=== PATIENT | female | born 1965 | race Caucasian/White ===

== ENCOUNTER → 2017-09-22 09:20 | Outpatient (CLI) | payer OTHER, SELFPAY ==
[2017-09-22 10:48] LABS: ALB/GLOB Ratio 1.2 RATIO (0.9-2.4); AST(SGOT) 16 U/L (15-37); Alanine Aminotransfer ALT/SGPT 32 U/L (13-56); Albumin, Serum 3.7 g/dL (3.2-5.0); Alkaline Phosphatase 85 U/L (45-117); Anion Gap 9 (5-15); BUN 10 mg/dL (7-18); BUN/Creat Ratio 11.3 RATIO (10-20); Calcium,Total 8.9 mg/dL (8.5-10.1); Chloride 101 mmol/L (98-107); Cholesterol 137 mg/dL (200); Creatinine, Serum 0.89 mg/dL (0.55-1.02); EST Glomerular Filtration Rate 71 mL/min (>60); Est Glom Filt Rate - Afr Amer 86 mL/min (>60); Globulin 3.2 g/dL (2.2-4.2); Glucose 222 mg/dL (74-106); High Density Lipoprotein 40 mg/dL; Potassium 4.1 mmol/L (3.5-5.1); Protein, Total 6.9 g/dL (6.4-8.2); Sodium Level 137 mmol/L (136-145); Thyroid Stim Hormone (TSH) 0.68 uIU/mL (0.358-3.74); Triglycerides 104 mg/dL; Very Low Density Lipoprotein 21 mg/dL (5-40)
== END ==
PROVIDERS: Family Provider Family Medicine; PCP Family Medicine; Visit Provider Family Medicine
DX: E11.9 Type 2 diabetes mellitus without complications (principal)
CPT/HCPCS: 36415; 80053; 80061; 84443

== ENCOUNTER → 2017-10-13 15:14 | Outpatient (CLI) | payer OTHER, SELFPAY ==
[2017-10-17 11:31] LABS: HPV APTIMA, High Risk Negative (Negative)
== END ==
PROVIDERS: Visit Provider Nurse Practitioner Women's Health
DX: Z12.4 Encounter for screening for malignant neoplasm of cervix (principal)
CPT/HCPCS: 88175; G0145

== ENCOUNTER → 2017-11-01 12:44 | Outpatient (CLI) | payer OTHER, SELFPAY | PROVIDERS: Family Provider Family Medicine; PCP Family Medicine; Visit Provider Nurse Practitioner Women's Health | DX: Z12.31 Encounter for screening mammogram for malignant neoplasm of breast (principal) | CPT/HCPCS: 77063; 77067 ==

== ENCOUNTER → 2017-12-30 14:09 | Outpatient (CLI) | payer OTHER, SELFPAY ==
[2017-12-30 15:03] LABS: Vitamin D,25 Hydroxy 28.6 ng/mL (29.95-100.01)
[2017-12-30 15:06] LABS: Hemoglobin A1c 7.8 % (4.2-6.3)
== END ==
PROVIDERS: Family Provider Family Medicine; PCP Family Medicine; Referring Provider Nurse Practitioner; Visit Provider Nurse Practitioner
DX: E11.9 Type 2 diabetes mellitus without complications (principal); E55.9 Vitamin D deficiency, unspecified
CPT/HCPCS: 36415; 82306; 83036

== ENCOUNTER → 2018-03-01 09:02 | Outpatient (CLI) | payer OTHER, SELFPAY ==
[2017-12-29 11:39] VITALS: BMI 39.2
--- NOTE | 2018-03-01 09:27 | EKG12_ITS ---
Test Reason : CP, UNSPECIFIED Blood Pressure : / mmHG Vent. Rate : 080 BPM Atrial Rate : 080 BPM P-R Int : 112 ms QRS Dur : 078 ms QT Int : 360 ms P-R-T Axes : 031 010 032 degrees QTc Int : 415 ms Normal sinus rhythm Low voltage QRS Cannot rule out Inferior infarct , age undetermined Abnormal ECG Confirmed by BRUNILDA GENAO, ALPHONSO ([id number]), marketing editor DILSHAD AGUILLON ([id number] on 03/03/2018 9:55:08 AM Referred By: Trent Siddiqui Confirmed By:ALPHONSO WORLEY MD
--- OUTSIDE RECORDS SUMMARY | 2018-04-17 05:03 | XMS RPT_ITS ---
:1965 Author Organization OHIP Support Name Relationship Address Phone DE LUNA Unavailable [address] + [place] [address] PINEDA TSE Unavailable [address] + [place] [address] DE LUNA Unavailable [address] + [place] [address] PINEDA TSE Unavailable [address] + [place] [address] DE LUNA Unavailable [address] + [place] [address] PINEDA TSE Unavailable [address] + [place] [address] DE LUNA Unavailable [address] + [place] [address] PINEDA TSE Unavailable [address] + [place] [address] DE LUNA Unavailable [address] + [place] [address] PINEDA TSE Unavailable [address] + [place] [address] DE LUNA Unavailable [address] + [place] [address] PINEDA TSE Unavailable [address] + [place] [address] DE LUNA Unavailable [address] + [place] [address] PINEDA TSE Unavailable [address] + [place] [address] DE LUNA Unavailable [address] + [place] [address] PINEDA TSE Unavailable [address] + [place] [address] DE LUNA Unavailable [address] + [place] [address] PINEDA TSE Unavailable [address] + [place] [address] DE LUNA Unavailable [address] + [place] [address] PINEDA TSE Unavailable [address] + [place] [address] DE LUNA Unavailable [address] + [place] [address] PINEDA TSE Unavailable [address] + [place] [address] DE LUNA Unavailable [address] + [place] [address] PINEDA TSE Unavailable [address] + [place] [address] DE LUNA Unavailable [address] + [place] [address] PINEDA TSE Unavailable [address] + [place] [address] DE LUNA Unavailable [address] + [place] [address] PINEDA TSE Unavailable [address] + [place] [address] DE LUNA Unavailable [address] + [place] [address] PINEDA TSE Unavailable [address] + [place] [address] DE LUNA Unavailable [address] + [place] [address] ASHLYPINEDA Unavailable [address] + [place] [address] DE LUNA Unavailable [address] + [place] [address] ASHLYPINEDA Unavailable [address] + [place] [address] Care Team Providers Name Role Phone Trent Siddiqui Attending Unavailable Trent Siddiqui Referring Unavailable Oli Weiner Primary Care Unavailable Syed Tamayo Attending Unavailable Oli Weiner Referring Unavailable Sulaiman London Attending Unavailable Trent Siddiqui Referring Unavailable Oli Weiner Primary Care Unavailable Trent Siddiqui Consulting Unavailable Syed Tamayo Attending Unavailable Syed Tamayo Referring Unavailable Ranney, Christopher Primary Care Unavailable Shayan Mckeon Attending Unavailable Ranney, Christopher Referring Unavailable MikeShayan hancock Attending Unavailable Mike Shayan Referring Unavailable Ranney, Christopher Primary Care Unavailable Ranney, Christopher Attending Unavailable Ranney, Christopher Primary Care Unavailable Kirsten, Nishi Attending Unavailable Ranney, Christopher Referring Unavailable Ranney, Christopher Primary Care Unavailable Elmendorf, Nishi Attending Unavailable Ranney, Christopher Primary Care Unavailable Elmendorf, Nishi Referring Unavailable Elmendorf, Nishi Attending Unavailable Ranney, Christopher Primary Care Unavailable Syed Tamayo Attending Unavailable Syed Tamayo Referring Unavailable Ranney, Christopher Primary Care Unavailable Syed Tamayo Attending Unavailable Syed Tamayo Referring Unavailable Syed Tamayo Attending Unavailable Syed Tamayo Referring Unavailable Ranney, Christopher Primary Care Unavailable Syed Tamayo Consulting Unavailable Susy Hudson LEAD SPRINKLER-C Attending Unavailable Ranney, Christopher Referring Unavailable Shook, Susy Pena LEAD SPRINKLER-C Attending Unavailable Ranney, Christopher Referring Unavailable [facility] Unavailable ShoSusy chowdary LEAD SPRINKLER-C Attending Unavailable Ranney, Christopher Referring Unavailable Shook, Susy Pena LEAD SPRINKLER-C Attending Unavailable Shook, Susy J LEAD SPRINKLER-C Referring Unavailable Ranney, [facility] Unavailable PROBLEMS PROBLEMS DATE TYPE CONDITION / CODE ATTENDING STATUS SOURCE 04/06/2018 Unknown E11.9 - Type 2 Susy Hudson Active [place] diabetes mellitus LEAD SPRINKLER-C Community without Hospital complications / Repository E11.9(ICD-10) 04/03/2018 Unknown R07.89 - Other Syed Tamayo Active [place] chest pain / Community R07.89(ICD-10) Hospital Repository 04/03/2018 Unknown I10 - Essential Syed Tamayo Active [place] (primary) Community hypertension / Hospital I10(ICD-10) Repository 03/30/2018 Unknown R07.9 - Chest pain, Syed Tamayo Active [place] unspecified / Community R07.9(ICD-10) Hospital Repository 03/07/2018 Unknown G47.33 - Shayan Mckeon Active [place] Obstructive sleep Community apnea (adult) Hospital (pediatric) / Repository G47.33(ICD-10) 12/29/2017 Unknown E55.9 - Vitamin D Susy Hudson Active [place] deficiency, [employer] SPRINKLER-C Community unspecified / Hospital E55.9(ICD-10) Repository 11/01/2017 Unknown Z12.4 - Encounter Nishi Curtis Active [place] for screening for Community malignant neoplasm Hospital of cervix / Repository Z12.4(ICD-10) PROCEDURES PROCEDURES No Procedure Records FoundRESULTS RESULTS ENDOCRINOLOGY VISIT Observed: 04/09/2018 Status: F Source: [place] REPORT 8:19 PM [facility] REPOSITORY [facility] [address] [place] [address] OFFICE VISIT Date of Service: 04/06/18 MR#: [id number] Acct: [id number] Name: LORENA TSE Rep #: [id number] : 1965 Provider: Susy Hudson NP Age/Sex: 53/F Location: [facility] [place] Status: Signed HPI History of present illness Lorena Tse is a 53 year old female who presents for consult of diabetes type 2. Diagnosed approx 2007. Continues on metformin. No side effects. Reports last A1c 7.8 At time of visit: -Pt denies symptoms of hypertensive emergency (CP,SOB,LIN, or blurred vision) and hypotension(dizziness or lightheadedness) -Pt denies symptoms of hypoglycemia ( sweaty, confusion, anxiety, tremor, hunger, palpitations) and hyperglycemia ( polydipsia, polyuria) -Pt denies potential medication adverse effect. Hypoglycemia Aware of hypoglycemia: When awake Able to self treat low BG: Yes Frequent low Blood sugar: No Has supply of glucagon: no SMBG Checks 2-3 times daily BG 150-180 range with occ higher. Diet 3 meals Calorie counting minimal snacks Exercise Walking each day Exam Const General: cooperative, healthy appearing, no acute distress, well developed Orientation: alert, oriented to person, oriented to place HENMT Head: normal to inspection Neck Neck: normal visual inspection Thyroid: thyroid normal Resp Effort AND Inspection: normal respiratory effort Auscultation: clear to auscultation bilaterally Cardio Rate: regular rate Rhythm: regular rhythm GI Palpation: soft, nontender, no masses Neuro General: alert, oriented x3 Psych Affect: normal affect Cardiopulmonary symptoms: Denies chest pain at rest or dizziness GI symptoms: Denies diarrhea, vomiting, nausea/dyspepsia or increased hunger Other symptoms: Reports blurry vision (being treated eye doctor); denies change in vision Intake Vital Signs04/06/18 Height 5 ft 2 in 04/06/18 Weight: 219 lb 04/06/18 Body Mass Index (BMI) 40.0 04/06/18 Blood Pressure 102/70 04/06/18 Blood Pressure Location Lt brachial Intake Visit Reasons: 3 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 Books Required: No Accompanied by: Self Is patient in pain?: No Allergies No Known Allergies Allergy (Verified 04/06/18 11:35) Medications atorvastatin 40 mg tablet 40 mg PO QDAY 10/12/17 [History Confirmed 04/06/18] cholecalciferol (vitamin D3) 1,000 unit capsule 1,000 unit PO QDAY 10/12/17 [History Confirmed 04/06/18] escitalopram 10 mg tablet 10 mg PO QDAY 10/12/17 [History Confirmed 04/06/18] lisinopril 10 mg-hydrochlorothiazide 12.5 mg tablet 1 tab PO QDAY 10/12/17 [History Confirmed 04/06/18] ropinirole 0.5 mg tablet 0.5 mg PO QHS 10/12/17 [History Confirmed 04/06/18] spironolactone 100 mg tablet 100 mg PO QDAY 10/12/17 [History Confirmed 04/06/18] aspirin 81 mg tablet,delayed release 81 mg PO DAILY 03/03/18 [History Confirmed 04/06/18] metformin 500 mg tablet See Rx Instructions PO .COMPLEX tab 03/03/18 [History Confirmed 04/06/18] sitagliptin 25 mg tablet 25 mg PO DAILY #30 tab 04/06/18 [Rx Confirmed 04/06/18] Is last menstrual period known: No Post menopausal: No Patient : No PFSH Medical History Chest pressure (Acute) PCOS (polycystic ovarian syndrome) (Chronic) Hypertension (Chronic) Diabetes (Chronic) Surgical History H/O bilateral oophorectomy (Chronic) H/O: hysterectomy (Chronic) History of breast biopsy (Chronic) History of carpal tunnel surgery (Chronic) History of laparoscopy (Chronic) History of tonsillectomy (Chronic) Family History Father Cancer Mother Pulmonary embolism Grandmother Diabetes Brother Kidney disease Grandfather No problems noted. Social History Smoking Status: Never smoker alcohol intake: never substance use type: does not use caffeine: Yes what type of physical activity do you participate in: walking seatbelt use: always do you feel safe at home: Yes additional social history: Nii- Patient works at [employer] ROS Const Constitutional: No chills, fever(s) or night sweats Eyes Eyes: Positive for blurry vision (being treated eye doctor); no change in vision ENT ENT: No nosebleed/epistaxis or ear pain Resp Respiratory: No cough or shortness of breath Cardio Cardiology: No chest pain at rest or generalized swelling Gastro GI: No diarrhea, vomiting or nausea/dyspepsia Genitourinary-Female: No difficulty urinating or urinary urgency Musc Musculoskeletal: No back pain or muscle cramps Skin Skin: No lesions or rash Neuro Neurology: No fainting or dizziness Endo Endocrine: Positive for increased thirst/drinking; no increased hunger Jayson/Lymp Hematologic/Lymphatic: No easy bleeding or easy bruising Assessment AND Plan Problems 1. Controlled type 2 diabetes mellitus without complication, without long-term current use of insulin E11.9 Plan Will add januvia to current regimen in effort to improve overall glycemicx control. Patient given coupon. On barbie inhibitor. Bp in range. Vit D low but patient forgets to take suppplement. Enc to do so. Patient Instructions Januvia once daily Continue to monitor diet, exercise and weight loss. Continue to monitor BG Medications New: Plan Detail Additional Comments 1. Please schedule follow up in 3 months. 2. Lab work one week before appointment. 3. Discussed importance of regular exercise and recommend starting or continuing a regular exercise program for good health. 4. The patient was encouraged to lose weight for good health 5. The importance of monitoring blood sugar regularly was reviewed. 6. The importance of monitoring the HBA1c level regularly was reviewed. 7. The importance of prper foot care and regularly checking feet to prevent sores and loss of limbs was reviewed. 8. The importance of keeping BP at or below 130/80 to prevent stroke, heart attacks, kidney failure, blindness was reviewed. Spent approximately 30 minutes with patient with over 50% of time spent in discussion and counseling regarding medication adjustment, symptoms and treatment of hypoglycemia, diet adherence, and checking BG before driving. 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: without squirt machine operator use Diabetes mellitus complication status: without complication 04/09/182018 <Electronically signed by Susy SOLO> Date Susy SOLO Cosigner Signature: Date (if applicable) CC: STRESS TEST ECHO W/ Observed: 04/03/2018 Status: F Source: [place] CONTRAST 9:56 AM [facility] REPOSITORY [facility] Cardiovascular Services [address] [place] [place] [id number] Stress Test Echo W/Contrast MR#: [id number] Acct: [id number] Name: LORENA TSE Rep #: [id number] : 1965 53 From: Syed Tamayo MD Primary Care: Oli Weiner MD Status: REG [facility] Ordering Dr: Syed Tamayo MD Sex: F C Reason For Study: CHEST PAIN Stress Results Protocol: Shayan Protocol Maximum Predicted HR: 168 bpm Target HR: 143 bpm % Maximum Predicted HR: 98 % DurationHeart Rate Stage (mm:ss) (bpm) BP Comment BASELINE 76 122/780.2 DEFINITY STAGE 1 3:00 134 174/78 STAGE 2 3:00 157 186/70 STAGE 3 0:30 164 / 0.2 CC DEFINITY RECOVERY 122 150/72 Stress Duration: 6:30 mm:ss Maximum Stress HR: 164 bpm Baseline Echocardiogram Findings The estimated ejection fraction is 65 %. Stress Echo Wall motion Data Resting WM Intermediate WM Stress WM Resting Wall Motion Wall Motion Stress No regional wall motion No regional wall motion abnormalities noted. abnormalities noted. EKG Data Normal intervals are noted. The patient exercised according to the regular Shayan protocol for a total duration of 6:30. The maximum heart rate attained was 169 beats per minute. This was 100% of maximum predicted heart rate. The patient exercised into stage 3 of the Shayan protocol. During stress, there were no ST or T wave changes noted to suggest ischemia. No clinical angina was noted. No arrhythmias noted. Interpretation Summary The estimated ejection fraction is 65 %. Normal adequate treadmill echocardiogram. Negative for ischemia by EKG and echocardiographic criteria. No anginal symptoms noted. No arrhythmias noted. Appropriate blood pressure response to exercise. Average exercise capacity for age. Decreased sensitivity due to poor echo windows requiring Definity agent. Final LVEF is 75%. Test terminated due to the attainment of target heart rate and leg discomfort. No complications. The study was technically difficult. Contrast injection was performed. 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 [place] [address] OFFICE VISIT Date of Service: 10/12/17 MR#: [id number] Acct: [id number] Name: LORENA TSE Rep #: [id number] : 1965 Provider: JS Curtis Age/Sex: 52/F Location: [facility] [place] Status: Signed with Addenda ADDENDUM by JS Curtis on 03/28/18 at 1110 Addendum entered and electronically signed by EDIL Park 03/28/18 11:10: Rectal exam was deferred. No masses palpated Assessment AND Plan Problems 1. Encounter for gynecological examination with abnormal finding Z01.411 2. Pap smear for cervical cancer screening Z12.4 3. Body mass index (BMI) of 40.1 to 44.9 in adult Z68.41 4. Dyspareunia Plan - EDIL Park Completed breast and pelvic exam Reviewed diet and exercise Pap thin prep pap with HPV Mammogram ordered Colonoscopy Will consult with Dr. Ngo for Rx of Adipex. Reviewed with patient use, benefits, risks and side effects. Keep diet diary and will need follow up with Dr. Ngo in 4 weeks Discussed use of coconut oil for dryness; consider estrogen cream if not helpful RTO 1 year, prn with problems Nishi Curtis MATTRESS WEAVER Orders Orders: 03/28/18 1110 <Electronically signed by Nishi SOLO> Date Nishi Curtis cc: * Signed Intake Vital Signs10/12/17 Height 5 ft 2 in 10/12/17 Weight: 224 lb 4 oz 10/12/17 Body Mass Index (BMI) 41.0 10/12/17 Blood Pressure 123/77 Intake Visit Reasons: ANNUAL Chief Complaint: NEW annual Salesperson Books Required: No Is patient in pain?: No Allergies No Known Allergies Allergy (Unverified 10/12/17 08:12) Medications atorvastatin 40 mg tablet 40 mg PO QDAY 10/12/17 [History Confirmed 10/12/17] cholecalciferol (vitamin D3) 1,000 unit capsule 1,000 unit PO QDAY 10/12/17 [History Confirmed 10/12/17] cinnamon bark 500 mg capsule mg PO 10/12/17 [History Confirmed 10/12/17] escitalopram 10 mg tablet 10 mg PO QDAY 10/12/17 [History Confirmed 10/12/17] lisinopril 10 mg-hydrochlorothiazide 12.5 mg tablet 1 tab PO QDAY 10/12/17 [History Confirmed 10/12/17] metformin 500 mg tablet 500 mg PO BID 10/12/17 [History Confirmed 10/12/17] ropinirole 0.5 mg tablet 0.5 mg PO QHS 10/12/17 [History Confirmed 10/12/17] spironolactone 100 mg tablet 100 mg PO QDAY 10/12/17 [History Confirmed 10/12/17] Is last menstrual period known: No Post menopausal: Yes Patient : No : No PFSH Medical History Diabetes (Acute) PCOS (polycystic ovarian syndrome) (Acute) Hypertension (Chronic) Surgical History H/O bilateral oophorectomy (Acute) H/O: hysterectomy (Acute) History of breast biopsy (Acute) History of carpal tunnel surgery (Acute) History of laparoscopy (Acute) History of tonsillectomy (Acute) Family History Father Cancer wild Mother Pulmonary embolism Grandmother Diabetes Social History Smoking Status: Never smoker alcohol intake: never substance use type: does not use caffeine: Yes what type of physical activity do you participate in: walking seatbelt use: always do you feel safe at home: Yes additional social history: Nii- Patient works at [employer] Pregancy History 3 Elective abortions Hx Para 2 Spontaneous abortions Past Pregnancies Del. DatName GA/WeeksOutcome Route [place] [facility] LocaProviderFOB e ht en ia tn Unknown 1987 Temi ndon Unknown 1996 Adr ianna HPI ANNUAL: Details: LORENA TSE is a 52 year old who presents for annual exam. Struggling with weight loss. Wants to try Adipex. Last PAP: 2017 abnormal History of abnormal PAP: no Last mammogram: 2017 History of abnormal mammogram: negative biopsy Female Reproductive History Questions: Metorrhagia: No, Sexually active: Yes, Dyspareunia: Yes, PCB: No Menopausal Treatment: No HRT ROS Const Constitutional: Denies fatigue, weight gain or weight loss Cardio Card: Denies chest pain Resp Resp: Denies cough or shortness of breath with activity GI GI: Denies abdominal pain, constipation, change in stools, vomiting or bloating : Reports as per HPI; denies urinary frequency, pelvic pain, urinary urgency, vaginal discharge, vaginal itching, urinary incontinence or difficulty urinating Exam Const General: cooperative, healthy appearing, no acute distress, well developed Orientation: alert, oriented to person, oriented to place [facility] Head: normal to inspection Neck Neck: normal visual inspection Thyroid: thyroid normal Lymphatic: no lymphadenopathy noted Chest Breast inspection: normal inspection of the breasts, normal inspection of the axillae Breast palpation: normal palpation of the breasts, normal palpation of the axillae, no axillary lymphadenopathy Resp Effort AND Inspection: normal respiratory effort Auscultation: clear to auscultation bilaterally Cardio Rate: regular rate Rhythm: regular rhythm GI Palpation: soft, nontender, no masses Rectal Exam: mass, deferred External Female Exam: normal external appearance, normal appearance of the urethra Urethra: normal appearance of the urethra, normal palpation Speculum Exam - Vagina: normal appearance of the vagina, normal vaginal discharge Speculum Exam - Cervix: normal appearance of the cervix (pap collected) Bimanual Exam- Vagina AND Uterus: normal bimanual exam, uterus absent Bimanual Exam- Adnexa, other: normal adnexae, no adnexal masses, adnexae non-tender, pelvic support normal Pelvic Support: normal Neuro General: alert, oriented x3 Psych Affect: normal affect Assessment AND Plan Problems 1. Encounter for gynecological examination with abnormal finding Z01.411 2. Pap smear for cervical cancer screening Z12.4 3. Body mass index (BMI) of 40.1 to 44.9 in adult Z68.41 4. Dyspareunia Plan Completed breast and pelvic exam Reviewed diet and exercise Pap thin prep pap with HPV Mammogram ordered Colonoscopy Will consult with Dr. Ngo for Rx of Adipex. Reviewed with patient use, benefits, risks and side effects. Keep diet diary and will need follow up with Dr. Ngo in 4 weeks Discussed use of coconut oil for dryness; consider estrogen cream if not helpful RTO 1 year, prn with problems Nishi Curtis CNP Orders Orders: Coding Level of Care Code Off vis,new,prev 40-64yrs Diagnoses Encounter for gynecological examination with abnormal finding Z01.411 Gynecological examination findings: abnormal findings PRESENT Pap smear for cervical cancer screening Z12.4 Body mass index (BMI) of 40.1 to 44.9 in adult Z68.41 Dyspareunia 10/12/17 1258 <Electronically signed by Nishi SOLO> Date Nishi Curtis NP-C Cosigner Signature: Date (if applicable) CC: ECHO, COMPLETE W/ Observed: 03/10/2018 Status: F Source: [place] CONTRAST 9:58 AM [facility] REPOSITORY [facility] Cardiovascular Services [address] [place] [place] [id number] Echo Complete W/ Contrast 03/09/18 1559 MR#: [id number] Acct: [id number] Name: LORENA TSE Rep #: [id number] : 1965 53 From: Syed Tamayo MD Attending Dr: Syed Tamayo MD Status: REG CLI Ordering Dr: Syed Tamayo MD Date: 03/09/18 Location: [facility] Sex: F C Admitted: Reason For Study: CHEST PAIN Procedure This was a 2D Doppler, Color Flow transthoracic echocardiogram. Contrast injection was performed. Exam performed in department. Left Ventricle Normal size and thickness. The estimated ejection fraction is 75 %. Stage 1 diastolic dysfunction. No regional wall motion abnormalities noted. Right Ventricle Normal size and thickness. Normal systolic function. Atria Normal left atrium. Normal right atrium. Normal atrial septum. Mitral Valve The mitral valve is structurally normal. No prolapse or stenosis seen. Tricuspid Valve Normal tricuspid valve. Trivial tricuspid valve insufficiency. Right ventricular systolic pressure estimated to be 26 mmHg. Aortic Valve Normal aortic valve. Trisinus/trileaflet aortic valve. Pulmonic Valve Normal pulmonic valve. Great Vessels Normal aortic root. Normal arch. Normal inferior vena cava. Inferior vena cava collapse with sniff. Pericardium/Pleural No pericardial effusion. Medication 22 gauge I.V. with prn adaptor inserted into right arm. Diluted definity 5ml given slow IV push to enhance endocardial definition. MMode/2D Measurements AND Calculations LVIDd: 4.1 cm IVSd: 1.1 cm Ao root diam: 2.8 cm LVIDs: 2.7 cm LVPWd: 0.99 cm RVDd: 3.6 cm FS: 34.3 % LAV(MOD-bp): 28.2 ml EDV(MOD-sp4): 65.6 ml EDV(MOD-sp2): 59.4 ml LAV(MOD-bp) Indexed: 14.2 ml/m2 ESV(MOD-sp4): 21.5 ml EF(MOD-sp2): 71.1 % LAV(MOD-sp2): 29.8 ml EF(MOD-sp4): 67.2 % LAV(MOD-sp4): 26.5 ml SV(MOD-sp4): 44.0 ml SV(MOD-sp2): 42.3 ml LA A4 area: 12.6 cm2 LA dimension(2D): 4.0 cm RA A4 area: 9.0 cm2 Time Measurements MV dec time: 0.24 sec Doppler Measurements AND Calculations MV E max david: 88.0 cm/sec Lat Peak E' David: 10.8 cm/sec Med Peak E' David: 6.6 cm/sec MV A max david: 93.7 cm/sec E/E' lat: 8.2 E/E' med: 13.4 MV E/A: 0.94 Ao V2 max: 174.4 cm/sec LV V1 max: 157.5 cm/sec TR max david: 228.1 cm/sec Ao max P.2 mmHg LV V1 max P.9 mmHg TR max P.8 mmHg Interpretation Summary The estimated ejection fraction is 75 %. Stage 1 diastolic dysfunction. Trivial tricuspid valve insufficiency. Right ventricular systolic pressure estimated to be 26 mmHg. The study was technically difficult. Contrast injection was performed. There is no comparison study available. Ordering Physician: Syed Tamayo Referring Physician: OLI WEINER Performed By: Guerita Evans, DUANE, RVT 03/10/1858 Date Syed Tamayo MD CC: Oli Weiner MD; Syed Tamayo MD Date Dictated: 03/09/18 1559 Date Transcribed: 03/10/1858 Capacity Planning Analyst: Signed PULMONARY VISIT REPORT Observed: 03/07/2018 Status: F Source: [place] 12:06 PM [facility] REPOSITORY [facility] [place] [address] [place] [address] OFFICE VISIT Date of Service: 03/07/18 MR#: [id number] Acct: [id number] Name: LORENA TSE Rep #: [id number] : 1965 Provider: Shayan Mckeon MD Age/Sex: 53/F Location: [facility] Status: Signed Assessment AND Plan 1. Obstructive Sleep Apnea-Hypopnea Syndrome G47.33 Plan Patient had a previous sleep study 10 years ago showing an AHI of 65 and weight is grossly unchanged compared to previous. Studies would indicate that a dental appliance is very unlikely to normalize patient's AHI. After review of the risks, benefits alternatives, patient is agreeable to having a repeat titration study. Did discuss with the patient about the role of weight loss and the overall disease plan of care, but would like to normalize AHI prior to initiation of dietary modification and increased activity. Patient voiced understanding. Titration study. Weight loss in the future. Orders Orders: Plan Detail Follow Up 3 Months (CSM) HPI Obstructive Sleep Apnea Patient is a 53-year-old female, currently under the care of Dr. Morley, who presents for evaluation secondary to obstructive sleep apnea. Patient reports that she was unable to tolerate nasal CPAP by nasal pillows when diagnosed approximately 10 years ago. Patient states that she is a belly sleeper and had difficulties with knocking the interface off. Patient has since attempted a dental appliance, but states that she still is significantly exhausted during the day and it is starting to cause jaw pain. Documentation reviewed 23 pages of documentation were reviewed from patient's primary care physician. Patient reportedly has had issues with obesity in the past and is attempting weight watchers. Patient does have a history of diabetes, hypertension and hyperlipidemia. Patient has been treated for RAAD with a dental piece and has some complaints of restless leg syndrome for which Requip has been successful subjectively. Testing personally reviewed with the patient PSG (03/06/2012): Overall AHI of 65.6 with desaturations as low as 88% controlled with CPAP 8 cm of water Patient is having a sleep study for: snoring, witnessed apneas, daytime sleepiness, leg movement, obstructive sleep Sleeping on side has: no effect How does the patient feel upon waking: exhausted Patient has morning headaches: Yes Patient naps during the day: Yes Patient falls asleep inappropriately during the day: Yes Patient has drowsiness while driving: Yes Patient falls asleep while driving: No Patient has difficulty concentrating during activity such as watching TV or reading: Yes There is a family history of obstructive sleep apnea: Yes Narcoleptic symptoms: Denies hynogogic hallucinations, sleep paralysis or cataplexy How many events per hour: 65 CPAP/BIPAP use: prescribed not used Intake Vital Signs03/07/18 Height 5 ft 2 in 03/07/18 Weight: 99.337 kg 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 Accompanied by: Self Allergies No Known Allergies Allergy (Verified 03/07/18 11:29) Medications atorvastatin 40 mg tablet 40 mg PO QDAY 10/12/17 [History Confirmed 03/07/18] cholecalciferol (vitamin D3) 1,000 unit capsule 1,000 unit PO QDAY 10/12/17 [History Confirmed 03/07/18] escitalopram 10 mg tablet 10 mg PO QDAY 10/12/17 [History Confirmed 03/07/18] lisinopril 10 mg-hydrochlorothiazide 12.5 mg tablet 1 tab PO QDAY 10/12/17 [History Confirmed 03/07/18] ropinirole 0.5 mg tablet 0.5 mg PO QHS 10/12/17 [History Confirmed 03/07/18] spironolactone 100 mg tablet 100 mg PO QDAY 10/12/17 [History Confirmed 03/07/18] aspirin 81 mg tablet,delayed release 81 mg PO DAILY 03/03/18 [History Confirmed 03/07/18] metformin 500 mg tablet See Rx Instructions PO .COMPLEX tab 03/03/18 [History Confirmed 03/07/18] [facility] Medical History Chest pressure (Acute) PCOS (polycystic ovarian syndrome) (Chronic) Hypertension (Chronic) Diabetes (Chronic) Surgical History H/O bilateral oophorectomy (Chronic) H/O: hysterectomy (Chronic) History of breast biopsy (Chronic) History of carpal tunnel surgery (Chronic) History of laparoscopy (Chronic) History of tonsillectomy (Chronic) Family History Father Cancer Mother Pulmonary embolism Grandmother Diabetes Brother Kidney disease Grandfather No problems noted. Social History Smoking Status: Never smoker alcohol intake: never substance use type: does not use caffeine: Yes what type of physical activity do you participate in: walking seatbelt use: always do you feel safe at home: Yes additional social history: Nii- Patient works at [employer] Review of Systems Const CONSTITUTIONAL: Positive stops breathing during sleep and fatigue; negative anorexia, body ache, chills, daytime sleepiness, fever(s), night sweats, oral thrush, weight loss, sleeping in chair, weight loss, weight gain, frequent colds, seasonal allergies, other, headache(s) or orthopnea EETM Ear Nose Throat Mouth: Positive hearing normal; negative hard of hearing, hoarseness, dry mouth in morning, change in vision, itchy eyes, eye pain, swallowing Difficulty, ear pain, nose bleed, headache(s), mouth pain, nasal congestion, nasal discharge, post nasal drip, sinus pain, sinus pressure, sore throat or other Cardio Cardiovascular: Negative chest pain, chest pain at rest, chest pain with activity, irregular heart rhythm, edema, shortness of breath when lying down, palpitations, murmur or other Resp Respiratory: Positive as per HPI and apnea; negative shortness of breath, pain with cough, wheezing, chest congestion, cough, chest tightness, pain on inspiration, inhalers, increase use of rescue inhalers, snoring or other Gastro Gastrointestional: Negative bloody stools, change in appetite, difficulty swallowing, reflux, hematemesis, melena stool, loose stool, constipation or other Genitourinary: Positive nocturia; negative blood in urine, pain with urination or other Musc Musculoskeletal: Negative body pain, back pain, neck pain or other Skin/Breast Skin/Breast: Negative dry skin, itching, rash, unusual bruising, breast lump or other Neuro Neurological: Negative restless legs, confusion, weakness or other Psych Psychocological: Negative abnormal sleep pattern, anxiety, thoughts of hurting self/others, hopelessness or other Lymph Lymphatic: Negative easy bleeding, easy bruising, swollen lymph nodes or other Exam Const Constitutional: Positive conversant, cooperative, in no acute respiratory distress, healthy appearing, well developed, well nourished, good hygiene and obese; negative appears older than stated age, smells of smoke, wearing supplemental oxygen or ill appearing Head Head: Positive normocephalic and atraumatic; negative cyanosis of lips/distal nose, frontal sinus tenderness or maxillary sinus tenderness Eyes Eye: Positive clear conjunctiva; negative nystagmus, scleral abnormality or cataract present Ears Ear: Positive hearing normal and external ears normal; negative hard of hearing Nose Nose: Positive external nose normal, septum normal and no nasal discharge; negative epistaxis or nasal polyp Mouth Mouth: Positive oral mucosae normal, no lesions, good dentition and crowded posterior oropharynx; negative post nasal drip, malodorous breath or oral thrush present Mallampati Score: IV: Mallampati Score Neck Neck: Positive normal visual inspection, full ROM, trachea midline, thick neck and female neck greater than 37 cm (15 in); negative lymphadenopathy or JVD Chest Wall Chest: Positive normal inspection of the chest and symmetric chest movement; negative crepitus or tenderness Resp lung sounds: Positive clear to auscultation, good air exchange, normal expiratory time and normal respiratory effort; negative wheezes, rhonchi, rales, use of accessory muscles, wheeze present on forced exhalation or dullness to percussion Cardio Cardiac: Positive regular rate, regular rhythm, S1 normal and S2 normal; negative murmur, rub or gallop GI GI: Positive normal to inspection, normal bowel sounds and obese; negative distended, ascites or epigastric tenderness Genitourinary: Positive deferred Musc Musculoskeletal: Positive steady gait; negative using an assistive device for ambulation, kyphosis or scoliosis Skin Pulmonary Skin Exam: Positive intact; negative rash, lesion, ulcers, erythema or dermal atrophy Pulses Pulse: Yes radial pulses present Extremities Extremities: Yes capillary refill normal, No clubbing, No cyanosis, No edema, No stasis dermatitis Neuro Neurologic: Yes conversant, Yes no focal neuro deficits, Yes understands questions, Yes normal concentration, Yes cooperative, Yes normal cognition, Yes normal coordination Lymph Lymphatic: No lymphadenopathy Psych Appearance: Positive grossly normal Mental Status: Positive mental status grossly normal Mood: Positive congruent mood Affect: Positive normal affect Coding Level of Care Code Off vis,new,level 3 Diagnoses Obstructive Sleep Apnea-Hypopnea Syndrome G47.33 03/07/18 1206 <Electronically signed by Shayan Mckeon MD> Date Shayan Denton Signature: Date (if applicable) CC: Oli Weiner MD CARDIOLOGY VISIT Observed: 03/03/2018 Status: F Source: [facility] REPORT 2:14 PM [facility] REPOSITORY [facility] [address] [place] [address] OFFICE VISIT Date of Service: 03/03/18 MR#: [id number] Acct: [id number] Name: LORENA TSE Rep #: [id number] : 1965 Provider: Syed Tamayo MD Age/Sex: 53/F Location: [facility] Status: Signed HPI HPI Chief Complaint: Chest pressure Details: LORENA TSE, is a 53 F with a history of diabetes, hypertension, hyperlipidemia, PCOS, RAAD on CPAP, currently on spironolactone who presents to the office today for evaluation of chest pressure. Specifically, the patient noted new onset chest pressure while driving home from work, on 02/28/18. Was described as chest pressure, and appeared to radiate up into her left shoulder and left side of her neck. Superimposed on this and for several months she has had left upper shoulder pain, particularly when she is sleeping and laying on that part of her body. She has had no exertional chest pressure, chest pain, shortness of breath or dyspnea. She had no associated symptoms during that event when she was driving home. 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 On further history she has had diabetes for about 4 years, and previously was on metformin as a prediabetic. That dosage was somewhat higher, and she developed right upper quadrant pain and was evaluated for gallbladder disease. Apparently a HIDA scan was performed which demonstrated possible gallbladder abnormalities. She had to hold her metformin at that time and her symptoms completely abated. She was then replaced on a lower dose of metformin several years later and had no symptoms. Her hemoglobin A1c was increasing so her metformin was recently increased about a month ago to a higher dosage. She has had no further symptoms since Tuesday. She reports she is compliant with her medications and her CPAP. Her mother at age 31 from a pulmonary embolism after hip fracture after an auto accident, and her father at age 40 from an unknown type of cancer. Her half brother of kidney failure at a very young age. In our office today her blood pressure is 104/60, pulse is 76 and regular. Her physical exam shows moderate obesity, clear lungs bilaterally, regular rate and rhythm, normal S1/S2, no S3 or S4. Her lipids as of 09/22/17 showing LDL of 76 and an HDL of 40. EKG dated 03/01/18 shows normal sinus rhythm, normal axis, normal intervals. Cannot exclude the possibility of inferior MO although her criteria do not quite reach this. 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 Is patient in pain?: No Allergies No Known Allergies Allergy (Verified 03/03/18 13:47) Medications atorvastatin 40 mg tablet 40 mg PO QDAY 10/12/17 [History Confirmed 03/03/18] cholecalciferol (vitamin D3) 1,000 unit capsule 1,000 unit PO QDAY 10/12/17 [History Confirmed 03/03/18] escitalopram 10 mg tablet 10 mg PO QDAY 10/12/17 [History Confirmed 03/03/18] lisinopril 10 mg-hydrochlorothiazide 12.5 mg tablet 1 tab PO QDAY 10/12/17 [History Confirmed 03/03/18] ropinirole 0.5 mg tablet 0.5 mg PO QHS 10/12/17 [History Confirmed 03/03/18] spironolactone 100 mg tablet 100 mg PO QDAY 10/12/17 [History Confirmed 03/03/18] aspirin 81 mg tablet,delayed release 81 mg PO DAILY 03/03/18 [History Confirmed 03/03/18] metformin 500 mg tablet See Rx Instructions PO .COMPLEX tab 03/03/18 [History] [facility] Medical History Chest pressure (Acute) PCOS (polycystic ovarian syndrome) (Chronic) Hypertension (Chronic) Diabetes (Chronic) Surgical History H/O bilateral oophorectomy (Chronic) H/O: hysterectomy (Chronic) History of breast biopsy (Chronic) History of carpal tunnel surgery (Chronic) History of laparoscopy (Chronic) History of tonsillectomy (Chronic) Family History Father Cancer Mother Pulmonary embolism Grandmother Diabetes Brother Kidney disease Grandfather No problems noted. Social History Smoking Status: Never smoker alcohol intake: never substance use type: does not use caffeine: Yes what type of physical activity do you participate in: walking seatbelt use: always do you feel safe at home: Yes additional social history: Nii- Patient works at [employer] ROS Const Const: Positive for fatigue and other (Left arm pain last 3-4 months, left arm pain Tues and Weds>left neck.); negative for weakness, body ache, fever(s), headache(s), chills, frequent falls, night sweats, daytime sleepiness, difficulty sleeping, excessive sweating, weight gain, weight loss, increased appetite, poor appetite or anorexia Eyes Eyes: Negative for blind spots, loss of peripheral vision, transient loss of vision, blurry vision, change in vision, double vision, floaters, tunnel vision or other ENT ENT: Negative for headache(s), dizziness, hearing loss, tinnitus, Nosebleed/epistaxis, balance problems, post nasal drip, lip swelling, tongue swelling, bleeding gums, hoarseness, neck pain, dry mouth or other Cardio Chest Pain: Yes (last and : midsternal pressure during driving home) Character: tightness Onset: other (spontaneous) Location: left chest, other (left shoulder and arm, left neck) Duration: minutes (10-20 minutes) Relieving: other (spontaneous) Palpitations: No Edema: None Muscle aches with walking: None Resp Respiratory: Negative for SOB with activity, SOB at rest, SOB orthopnea\SOB lying down, Cough, Coughing up blood/hemoptysis, chest congestion, pain on inspiration, snoring, stridor, wheezing, crackles, paroxysmal nocturnal dyspnea or other GI GI: Positive for other (Has GERD. Still has gallbladder.); negative nausea, vomiting, heartburn, constipation, belching, bloating, cramping, vomiting blood/hematemesis, bright, red blood in stools, black,tarry stools, loose stools or Difficulty Swallowing : Negative for hematuria, frequent nighttime urination/ nocturia, erectile dysfunction or abnormal vaginal bleeding Musc Musc: Negative for balance problems, muscle aches/ myalgia, muscle weakness or joint pain Skin Skin: Negative redness, non-healing lesions, rash, unusual bruising, skin ulcer, wounds, jaundice or other Neuro Neuro: Negative for weakness, headache(s), frequent falls, blurry vision, double vision, dizziness, lightheadedness, near syncope, syncope, orthostatic symptoms, confusion, memory loss, restless legs, vertigo, seizures, lack of coordination or other Jayson Hematologic/Lymphatic: Negative for easy bleeding, easy bruising, enlarged lymph nodes or other Endo Endo: Positive for fatigue; negative for excessive sweating, cold intolerance, heat intolerance, flushing, increased thirst/drinking, increased hunger, hair loss, hair growth or other Psych Psych: Negative for anxiety, depression, thoughts of harming anyone, thoughts of harming yourself, visual hallucinations, panic attacks or audible hallucinations Allergy Allergy/Immunology: Negative for lip swelling, Negative for tongue swelling, Negative for rash, Negative for throat swelling, Negative for hives Cardiology Exam Const Appearance: cooperative, healthy appearing and no acute distress Nutritional Appearance: well nourished Orientation: alert, oriented x3 and oriented to person Head Head: normal to inspection, atraumatic and normocephalic Nose: external nose normal Face and Sinus: face symmetric Mouth: oral mucosae normal Eyes General: appearance normal, both eyes and all related structures Eyelids: eyelids normal Conjunctivae: conjunctivae normal Pupils: PERRL and normal by confrontation EOM: EOM intact bilaterally Neck Neck: normal visual inspection and full ROM Carotids: normal carotid upstroke Chest Chest inspection: normal inspection of the chest Auscultation: Bilateral: Clear to Auscultation Cardio Palpation: normal PMI Rate: regular rate Rhythm: regular rhythm Heart sounds: S1 normal and S2 normal GI GI: normal to inspection, no hepatosplenomegaly and bowel sounds present Neuro General: alert, oriented x3, awake, CN's II-XI intact bilaterally and moves all extremities Skin Skin: no rashes or lesions noted Extremities Pulses: Normal: Right Femoral Pulse, Left Femoral Pulse, Right Dorsalis Pedis Pulse, Left Dorsalis Pedis Pulse, Right Posterior Tibial Pulse, Left Posterior Tibial Pulse, Right Radial Pulse, Left Radial Pulse Lower Extremity Edema: None: Bilateral Psych Psychological: normal affect Assessment AND Plan 1. Chest pressure R07.89 Plan 1. Chest pressure: The patient presents with atypical chest pressure superimposed on several risk factors such as morbid obesity, and, hypercholesterolemia, diabetes. She is a non-smoker. I recommended that she undergo a 2D echo with Doppler as well as a treadmill echocardiogram to evaluate for possible ischemia. If either 1 of these are grossly abnormal, I would have a low threshold for diagnostic coronary angiogram. In addition I recommended baby aspirin 81 mg p.o. daily. Her symptoms may be related to her higher dose of metformin and may require metformin adjustment. It is also possible the patient may have had progression of her gallbladder disease may require an ultrasound of her gallbladder. The patient's workup is negative and yet she still continues to have symptoms, I have a low threshold for diagnostic coronary angiogram given her risk factors. 2. Hyperlipidemia: Given her diabetes I recommend aggressive LDL reduction. Her LDL is 76. Continue Lipitor. 3. Return office in 6 months. This note was generated using a voice recognition system and there may be incorrect words, spelling or punctuation that were not noted when reviewing the office note prior to saving. Orders Orders: Plan Detail Other Orders Orders: Other Medications New: Changed: Discontinued: Follow Up +6M (Roni) Coding Level of Care Code Off vis,new,level 4 Diagnoses Chest pressure R07.89 Coding Level of Care Code Off vis,new,level 4 Diagnoses Chest pressure R07.89 03/03/18 1414 <Electronically signed by Syed Tamayo MD> Date Syed Tamayo MD [facility] Signature: Date (if applicable) CC: Oli Weiner MD 12 LEAD ELECTROCARDIOGRAM Observed: 03/03/2018 Status: F Source: [place] 9:55 AM [facility] REPOSITORY [facility] Cardiovascular Services [address] [place] [address] 12 Lead EKG 03/01/18 0950 MR#: [id number] Acct: [id number] Name: LORENA TSE Rep #: [id number] : 1965 53 From: Sulaiman London MD Attending Dr: Trent Siddiqui NP Status: REG CLI Ordering Dr: Nishi Curtis LEAD SPRINKLER-C Date: 03/01/18 Location: [facility] Sex: F C Admitted: Test Reason : CP, UNSPECIFIED Blood Pressure : / mmHG Vent. Rate : 080 BPM Atrial Rate : 080 BPM P-R Int : 112 ms QRS Dur : 078 ms QT Int : 360 ms P-R-T Axes : 031 010 032 degrees QTc Int : 415 ms Normal sinus rhythm Low voltage QRS Cannot rule out Inferior infarct , age undetermined Abnormal ECG Confirmed by SULAIMAN LONDON MD ([id number]), visual effects editor DILSHAD AGUILLON ([id number]) on 03/03/2018 9:55:08 AM Referred By: Trent Siddiqui Confirmed By:SULAIMAN LONDON MD 03/03/18 0955 Date Sulaiman London MD CC: JS Siddiqui; JS Curtis; Oli Weiner MD Signed TROPONIN-I Collected: 03/01/2018 Status: F Source: [place] 9:10 AM [facility] REPOSITORY Order Comment: 'TROP' Serial specimen #1, #2, #3, or #4: 1 TYPE CODE TESTS RESULT OUT OF RANGE REFERENCE UNITS LAB L501.4010 <0.045 ng/mL Normal < 0.015 TROPONIN-I Result Comment: TROPONIN-I EXPECTED VALUES <0.045 Negative 0.045 - 0.590 Consistent with Cardiac Damage > OR = 0.600 Critical Value Not every elevated troponin is indicative of MO. These values should be used with clinical judgement in examining the patient's clinical picture for diagnosis. To establish a diagnosis of MO versus myocardial injury, there must be a demonstrated rise and/or fall in the troponin values, in addition to ischemic symptoms, EKG changes, new regional wall motion abnormality, and/or angiographical evidence. PLEASE NOTE: REFERENCE RANGES EDITED 17 Performed By: #### L501.4010 #### [facility] [place], [address] ENDOCRINOLOGY VISIT Observed: 01/04/2018 Status: F Source: [place] REPORT 7:17 PM [facility] REPOSITORY [facility] [address] [place] [address] OFFICE VISIT Date of Service: 12/29/17 MR#: [id number] Acct: [id number] Name: LORENA TSE Rep #: [id number] : 1965 Provider: Susy Hudson NP Age/Sex: 52/F Location: [facility] [place] Status: Signed HPI History of present illness History of present illness Lorena Tse is a 52 year old female who presents for consult of diabetes type 2. Diagnosed approx 2007. Continues on metformin. No side effects. Reports last A1c in range. At time of visit: -Pt denies symptoms of hypertensive emergency (CP,SOB,LIN, or blurred vision) and hypotension(dizziness or lightheadedness) -Pt denies symptoms of hypoglycemia ( sweaty, confusion, anxiety, tremor, hunger, palpitations) and hyperglycemia ( polydipsia, polyuria) -Pt denies potential medication adverse effect. Hypoglycemia Aware of hypoglycemia: When awake Able to self treat low BG: Yes Frequent low Blood sugar: No Has supply of glucagon: no Diet 3 meals Calorie counting minimal snacks Exercise Walking each day Exam Const General: cooperative, healthy appearing, no acute distress, well developed Orientation: alert, oriented to person, oriented to place [facility] Head: normal to inspection Neck Neck: normal visual inspection Thyroid: thyroid normal Resp Effort AND Inspection: normal respiratory effort Auscultation: clear to auscultation bilaterally Cardio Rate: regular rate Rhythm: regular rhythm GI Palpation: soft, nontender, no masses Neuro General: alert, oriented x3 Psych Affect: normal affect Type: type 2 Weight and fatigue symptoms: Reports weight loss; denies snoring Cardiopulmonary symptoms: Denies chest pain at rest, dyspnea on exertion, lightheadedness or myalgias GI symptoms: Denies constipation, diarrhea, nausea/dyspepsia or vomiting Skin and extremity symptoms: Denies tingling/numbness/burning Other symptoms: Reports blurry vision; denies change in vision Pertinent visit history: Denies recent visit to ER, recent DKA or recent hospital admission Self monitoring: Yes Dietary compliance: Diabetes: good Diabetes education in past year: Yes Glucose testing: demonstrates 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 meter, understands testing schedule Intake Vital Signs12/29/17 Height 5 ft 2 in 12/29/17 Weight: 214 lb 4 oz 12/29/17 Body Mass Index (BMI) 39.2 12/29/17 Blood Pressure 106/73 12/29/17 Blood Pressure Location Lt popliteal 12/29/17 Blood Pressure Position Sitting 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 Accompanied by: Self Allergies No Known Allergies Allergy (Unverified 12/29/17 11:38) Medications atorvastatin 40 mg tablet 40 mg PO QDAY 10/12/17 [History Confirmed 12/29/17] cholecalciferol (vitamin D3) 1,000 unit capsule 1,000 unit PO QDAY 10/12/17 [History Confirmed 12/29/17] cinnamon bark 500 mg capsule mg PO 10/12/17 [History Confirmed 12/29/17] escitalopram 10 mg tablet 10 mg PO QDAY 10/12/17 [History Confirmed 12/29/17] lisinopril 10 mg-hydrochlorothiazide 12.5 mg tablet 1 tab PO QDAY 10/12/17 [History Confirmed 12/29/17] ropinirole 0.5 mg tablet 0.5 mg PO QHS 10/12/17 [History Confirmed 12/29/17] spironolactone 100 mg tablet 100 mg PO QDAY 10/12/17 [History Confirmed 12/29/17] phentermine 37.5 mg tablet 37.5 mg PO QDAY #30 tab 12/23/17 [Rx Confirmed 12/29/17] metformin 500 mg tablet 500 mg PO .COMPLEX #450 tab 12/29/17 [Rx Confirmed 12/29/17] Nurse's Note: blood sugars : low : 140 high : 185 PFSH Medical History Diabetes (Acute) H/O: hysterectomy (Acute) PCOS (polycystic ovarian syndrome) (Acute) Hypertension (Chronic) Surgical History H/O bilateral oophorectomy (Acute) History of breast biopsy (Acute) History of carpal tunnel surgery (Acute) History of laparoscopy (Acute) History of tonsillectomy (Acute) Family History Father Cancer wild Mother Pulmonary embolism Grandmother Diabetes Social History Smoking Status: Never smoker alcohol intake: never substance use type: does not use caffeine: Yes what type of physical activity do you participate in: walking seatbelt use: always do you feel safe at home: Yes additional social history: Nii- Patient works at [employer] Actions Constitutional: No anorexia, body ache, chills, fatigue, fever(s), frequent falls, decreased energy, malaise, night sweats, weakness, weight change, sleep problems, abnormal sleep pattern, change in appetite, other, headache(s), snoring or excessive sweating Eyes Eyes: Positive for blurry vision; no change in vision, double vision, discharge, dry eyes, bulging eyes, floaters, visual disturbances, eye pain, light sensitivity, spots in vision, tunnel vision or other ENT ENT: No abnormal hearing, ear pain, ear discharge, ear pressure, hearing loss, tinnitus, dizziness/vertigo, balance problems, nosebleed/epistaxis, nasal congestion, nasal obstruction, nose pain, sinus pressure, sinus pain, nasal discharge, post nasal drip, headache(s), facial pain, dental pain, dry mouth, bad breath, hoarseness, lip swelling, mouth lesions, mouth pain, sore throat, tongue swelling, throat swelling, other, difficulty swallowing or neck pain Resp Respiratory: No cough, change in phlegm color, chest congestion, excessive phlegm production, hemoptysis, pain on inspiration, shortness of breath, pain with cough, snoring, stridor, wheezing or other Cardio Cardiology: No chest pain at rest, chest pain with exertion, leg pain with exertion, excessive sweating, shortness of breath, dyspnea on exertion, generalized swelling, irregular heart rhythm, lightheadedness, orthopnea, radiating jaw, neck or arm pain, fast heart rate, slow heart rate, palpitations or other Gastro GI: No abdominal pain, belching, bloating, change in bowel habits, change in stool character, coffee ground emesis, constipation, cramping, diarrhea, heartburn, difficulty swallowing, feeling full early, excessive flatus, incontinent of stools, Vomiting blood/hematemesis, blood in stool, loose stools, Black,tarry stools, nausea/dyspepsia, pain with swallowing, vomiting or other Genitourinary-Female: No difficulty urinating, burning urination, painful urination, urinary incontinence, urinary frequency, urinary urgency, urinary hesitancy, urinary retention, blood in urine, Frequent nighttime urination/ nocturia, post void dribbling, suprapubic fullness, side pain, sexual problems, genital lesions, genital itching, hot flashes, abnormal periods, abnormal vaginal bleeding, absent period, painful periods, light periods, heavy periods, difficulty getting , painful intercourse, pelvic pain, vaginal dryness, vaginal odor, Vaginal Itching or other Musc Musculoskeletal: No abnormal walking, joint pain, back pain, deformity, joint swelling, limited range of motion, loss of height, muscle cramps, muscle weakness, decreased muscle mass, body aches, neck pain, numbness, radiating pain into limb, stiffness, tingling or other Skin Skin: No acne, hair loss, change in hair, nail changes, boil, change in skin color, dry skin, redness, excessive hair growth, yellowing of the skin, lesions, itching, rash, skin pain, skin ulcer, sores, skin swelling, wounds or other Breast Breast: No other Neuro Neurology: No frequent falls, weakness, visual disturbances, abnormal hearing, headache(s), abnormal walking, numbness or tingling Psych Psychiatric: No abnormal sleep pattern, No change in appetite Endo Endocrine: No fatigue, other or excessive sweating Aller/Imm Allergy/Immunologic: No lip swelling, tongue swelling, throat swelling, wheezing or itchy eyes Assessment AND Plan 1. Controlled type 2 diabetes mellitus without complication, without long-term current use of insulin E11.9 Plan Doing well with diet and exercise. Is checking BG. Taking medication as directed. Finding it difficult to lose weight. Revieiwed labs. BP in control. Vit D low, will increase OTC supplement. Patient Instructions Begin slow titration of metformin every 10 days. Orders Orders: Plan Detail Other Orders Orders: Other Medications New: Additional Comments 1. Please schedule follow up in 3 months. 2. Lab work one week before appointment. 3. Discussed importance of regular exercise and recommend starting or continuing a regular exercise program for good health. 4. The patient was encouraged to lose weight for good health 5. The importance of monitoring blood sugar regularly was reviewed. 6. The importance of monitoring the HBA1c level regularly was reviewed. 7. The importance of prper foot care and regularly checking feet to prevent sores and loss of limbs was reviewed. 8. The importance of keeping BP at or below 130/80 to prevent stroke, heart attacks, kidney failure, blindness was reviewed. Spent approximately 30 minutes with patient with over 50% of time spent in discussion and counseling regarding medication adjustment, symptoms and treatment of hypoglycemia, diet adherence, and checking BG before driving. 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 01/04/181916 <Electronically signed by Susy SOLO> Date Susy SOLO Cosigner Signature: Date (if applicable) CC: VITAMIN D,25 HYDROXY Collected: 12/30/2017 Status: F Source: [place] 2:13 PM [facility] REPOSITORY TYPE CODE TESTS RESULT OUT OF REFERENCE UNITS RANGE LAB L506.1000 29.95-100.01 ng/mL Low Vitamin D 28.6 25-OH Result Comment: Vitamin D 25(OH) Status Range Deficiency <20 ng/mL (50nmol/L) Insuffciency 20 - 30 ng/mL (50 - 75 nmol/L) Sufficiency 30 - 100 ng/mL (75 - 250 nmol/L) Toxicity >100 ng/mL (>250 nmol/L) Performed By: #### L506.1000, L501.9985 #### [facility] [address], [address] HEMOGLOBIN A1C Collected: 12/30/2017 Status: F Source: [place] 2:13 PM [facility] REPOSITORY TYPE CODE TESTS RESULT OUT OF RANGE REFERENCE UNITS LAB L501.9985 4.2-6.3 % High HGB A1C 7.8 Performed By: #### L506.1000, L501.9985 #### [facility] [address] [place], [address] ENDOCRINOLOGY VISIT Observed: 11/14/2017 Status: F Source: [place] REPORT 8:13 AM [facility] REPOSITORY [facility] [address] [place] [address] OFFICE VISIT Date of Service: 11/03/17 MR#: [id number] Acct: [id number] Name: LORENA TSE Rep #: [id number] : 1965 Provider: Susy Hudson NP Age/Sex: 52/F Location: [facility] [place] Status: Signed HPI History of present illness Lorena Tse is a 52 year old female who presents for consult of diabetes type 2. Diagnosed approx 2007. Continues on metformin. No side effects. Reports last A1c in range. At time of visit: -Pt denies symptoms of hypertensive emergency (CP,SOB,LIN, or blurred vision) and hypotension(dizziness or lightheadedness) -Pt denies symptoms of hypoglycemia ( sweaty, confusion, anxiety, tremor, hunger, palpitations) and hyperglycemia ( polydipsia, polyuria) -Pt denies potential medication adverse effect. Hypoglycemia Aware of hypoglycemia: When awake Able to self treat low BG: Yes Frequent low Bloo sugar: No Has supply of glucagon: no Diet 3 meals Calorie counting minimal snacks Exercise Walking each day Exam Const General: cooperative, healthy appearing, no acute distress, well developed Orientation: alert, oriented to person, oriented to place [facility] Head: normal to inspection Neck Neck: normal visual inspection Thyroid: thyroid normal Resp Effort AND Inspection: normal respiratory effort Auscultation: clear to auscultation bilaterally Cardio Rate: regular rate Rhythm: regular rhythm GI Palpation: soft, nontender, no masses Neuro General: alert, oriented x3 Psych Affect: normal affect Type: type 2 Weight and fatigue symptoms: Reports weight loss; denies snoring Cardiopulmonary symptoms: Denies chest pain at rest, dyspnea on exertion, lightheadedness or myalgias GI symptoms: Denies constipation, diarrhea, nausea/dyspepsia, vomiting or increased hunger Skin and extremity symptoms: Denies tingling/numbness/burning Other symptoms: Reports blurry vision and change in vision Pertinent visit history: Denies recent visit to ER or recent 911 calls Self monitoring: Yes Percentage of fasting blood glucose within goal: >50% of the time Dietary compliance: Diabetes: good Diabetes education in past year: Yes Glucose testing: demonstrates 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 meter, 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 Sick day education - understands ketone testing: Yes Physical activity: regular, advised to exercise at least 150 min/week (moderate intensity aerobic) Intake Vital Signs11/03/17 Height 5 ft 2 in 11/03/17 Weight: 218 lb 2 oz 11/03/17 Body Mass Index (BMI) 39.9 11/03/17 Blood Pressure 119/84 11/03/17 Blood Pressure Location Lt popliteal 11/03/17 Blood Pressure Position Sitting Intake Visit Reasons: Diabetes Mellitus 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: No Accompanied by: Self Is patient in pain?: No Allergies No Known Allergies Allergy (Unverified 11/03/17 11:03) Medications atorvastatin 40 mg tablet 40 mg PO QDAY 10/12/17 [History Confirmed 11/03/17] cholecalciferol (vitamin D3) 1,000 unit capsule 1,000 unit PO QDAY 10/12/17 [History Confirmed 11/03/17] cinnamon bark 500 mg capsule mg PO 10/12/17 [History Confirmed 11/03/17] escitalopram 10 mg tablet 10 mg PO QDAY 10/12/17 [History Confirmed 11/03/17] lisinopril 10 mg-hydrochlorothiazide 12.5 mg tablet 1 tab PO QDAY 10/12/17 [History Confirmed 11/03/17] metformin 500 mg tablet 500 mg PO BID 10/12/17 [History Confirmed 11/03/17] ropinirole 0.5 mg tablet 0.5 mg PO QHS 10/12/17 [History Confirmed 11/03/17] spironolactone 100 mg tablet 100 mg PO QDAY 10/12/17 [History Confirmed 11/03/17] phentermine 37.5 mg tablet 37.5 mg PO QDAY #30 tab 11/09/17 [Rx] Is last menstrual period known: No Post menopausal: Yes Patient : No Nurse's Note: blood sugars : low : 154 high : 384 PFSH Medical History Diabetes (Acute) PCOS (polycystic ovarian syndrome) (Acute) Hypertension (Chronic) Surgical History H/O bilateral oophorectomy (Acute) H/O: hysterectomy (Acute) History of breast biopsy (Acute) History of carpal tunnel surgery (Acute) History of laparoscopy (Acute) History of tonsillectomy (Acute) Family History Father Cancer wild Mother Pulmonary embolism Grandmother Diabetes Social History Smoking Status: Never smoker alcohol intake: never substance use type: does not use caffeine: Yes what type of physical activity do you participate in: walking seatbelt use: always do you feel safe at home: Yes additional social history: Nii- Patient works at [employer] ROS Const Constitutional: No anorexia, body ache, chills, fever(s), frequent falls, decreased energy, malaise, night sweats, weakness, weight change, sleep problems, abnormal sleep pattern, change in appetite, other, headache(s), snoring, excessive sweating or fatigue Eyes Eyes: Positive for blurry vision, change in vision and other (had recent eye exam); no double vision, discharge, dry eyes, bulging eyes, floaters, visual disturbances, eye pain, light sensitivity, spots in vision or tunnel vision ENT ENT: No abnormal hearing, ear pain, ear discharge, ear pressure, hearing loss, tinnitus, dizziness/vertigo, balance problems, nosebleed/epistaxis, nasal congestion, nasal obstruction, nose pain, sinus pressure, sinus pain, nasal discharge, post nasal drip, headache(s), facial pain, dental pain, dry mouth, bad breath, hoarseness, lip swelling, mouth lesions, mouth pain, sore throat, tongue swelling, throat swelling, difficulty swallowing, neck pain or other Resp Respiratory: No cough, change in phlegm color, chest congestion, excessive phlegm production, hemoptysis, pain on inspiration, shortness of breath, pain with cough, snoring, stridor, wheezing or other Cardio Cardiology: No chest pain at rest, chest pain with exertion, leg pain with exertion, shortness of breath, dyspnea on exertion, generalized swelling, irregular heart rhythm, lightheadedness, orthopnea, radiating jaw, neck or arm pain, fast heart rate, slow heart rate, palpitations, other or excessive sweating Gastro GI: No abdominal pain, belching, bloating, change in bowel habits, change in stool character, coffee ground emesis, constipation, cramping, diarrhea, heartburn, difficulty swallowing, feeling full early, excessive flatus, incontinent of stools, Vomiting blood/hematemesis, blood in stool, loose stools, Black,tarry stools, nausea/dyspepsia, pain with swallowing, vomiting or other Genitourinary-Female: No difficulty urinating, burning urination, painful urination, urinary incontinence, urinary frequency, urinary urgency, urinary hesitancy, urinary retention, blood in urine, Frequent nighttime urination/ nocturia, post void dribbling, suprapubic fullness, side pain, sexual problems, genital lesions, genital itching, hot flashes, abnormal periods, abnormal vaginal bleeding, absent period, painful periods, light periods, heavy periods, difficulty getting , painful intercourse, pelvic pain, vaginal dryness, vaginal odor, Vaginal Itching or other Musc Musculoskeletal: No abnormal walking, joint pain, back pain, deformity, joint swelling, limited range of motion, loss of height, muscle cramps, muscle weakness, decreased muscle mass, body aches, neck pain, numbness, radiating pain into limb, stiffness, tingling or other Skin Skin: No acne, hair loss, change in hair, nail changes, boil, change in skin color, dry skin, redness, excessive hair growth, yellowing of the skin, lesions, itching, rash, skin pain, skin ulcer, sores, skin swelling, wounds or other Breast Breast: No other Neuro Neurology: No frequent falls, weakness, visual disturbances, abnormal hearing, headache(s), abnormal walking, numbness or tingling Psych Psychiatric: No abnormal sleep pattern, No change in appetite Endo Endocrine: Positive for increased thirst/drinking; no change in body appearance, cold intolerance, excessive sweating, fatigue, flushing, heat intolerance, increased hunger, increased urination or other Aller/Imm Allergy/Immunologic: No lip swelling, tongue swelling, throat swelling, wheezing or itchy eyes Assessment AND Plan Problems 1. Controlled type 2 diabetes mellitus without complication, without long-term current use of insulin E11.9 Plan Discussed carb counting. Discussed BG monitoring before and 2 hours after meals Discussed 150 minutes exercise each week Discussed weight loss Discussed medications, side effects, lab monitoring Discussed self care and management of diabetes Reviewed labs. Bp in range Chol in range Renal in normal range On barbie inhibitor On statin Plan Detail Additional Comments 1. Please schedule follow up in 3 months. 2. Lab work one week before appointment. 3. Discussed importance of regular exercise and recommend starting or continuing a regular exercise program for good health. 4. The patient was encouraged to lose weight for good health 5. The importance of monitoring blood sugar regularly was reviewed. 6. The importance of monitoring the HBA1c level regularly was reviewed. 7. The importance of prper foot care and regularly checking feet to prevent sores and loss of limbs was reviewed. 8. The importance of keeping BP at or below 130/80 to prevent stroke, heart attacks, kidney failure, blindness was reviewed. Spent approximately 30 minutes with patient with over 50% of time spent in discussion and counseling regarding medication adjustment, symptoms and treatment of hypoglycemia, diet adherence, and checking BG before driving. 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 use Diabetes mellitus complication status: without complication 11/14/17 0813 <Electronically signed by Susy SOLO> Date Susy SOLO Cosigner Signature: Date (if applicable) CC: SCREENING MAMM (CAD), Observed: 11/01/2017 Status: F Source: [place] SANCHEZ 12:48 PM [facility] REPOSITORY [facility] Imaging Services [address] [place] [address] [place] [address] SCREENING MAMM (CAD), BILAT MR#: [id number] Acct: [id number] Name: LORENA TSE Rep #: [id number] : 1965 F 52 From: Austen Malin MD PCP: Oli Weiner MD Status: [facility] Study: SCREENING MAMM (CAD), BILAT Date of Exam: 11/01/17 Exam# [id number] Ordering Dr: Nishi Curtis LEAD SPRINKLER-C MAMMOGRAPHY - BILATERAL SCREENING REASON FOR EXAM: Female, 52 years old. Routine annual screening examination. PERTINENT HISTORY: Non-contributory. Prior left ultrasound- guided breast biopsy. TECHNIQUE: Digital bilateral breast aaron (3D mammographic acquisition) in the CC and MLO projections. 2-D mediolateral oblique (MLO) and craniocaudad (CC) views of both breasts were obtained. CAD: Full Field Digital Mammography with Computer Added Detection was performed. COMPARISON: Comparison is made with prior outside examination dated December 09, 2016. FINDINGS: Breast Composition: The breasts are heterogeneously dense, which may obscure small masses. There are no dominant masses or suspicious calcifications. There are 2 tissue clip marker is seen in the upper outer aspect of the left breast in keeping with prior biopsy. No other significant abnormalities are identified. There has been no significant change since the prior study. BI/SCREENING MAMM (CAD), BILAT IMPRESSION: Stable bilateral screening mammogram. Yearly follow-up mammogram recommended. (A) ASSESSMENT CATEGORY: BIRADS Category 2: Benign. A letter regarding these results will be sent to the patient by the facility within 30 days. Approximately 10% of breast cancers are not detected by mammography. A normal mammogram should not delay biopsy of a clinically suspicious abnormality. [id number] Electronically Signed: Austen Malin MD at 8:57 EDT Tel [phone], Service support , CC: JS Curtis; Oli Weiner MD Capacity Planning Analyst: Signed PAP IG HPV APTIMA Collected: 10/12/2017 Status: F Source: [place] 16/18,45 9:20 AM [facility] REPOSITORY Order Comment: CYTOLOGY INFORMATION: - CLINICAL INFORMATION: ANNUAL - DATE LMP/MENOPAUSE: LMP/ NOT GIVEN - COLLECTION VIAL: Thin Prep Vial - RECYCLING OPERATIONS MANAGER SOURCE: CERVICAL - COLLECTION TECHNIQUE: BRUSH/SPATULA Specimen Comment: [id number] Specimen Comment: No. of containers..01 ThinPrep Vial TYPE CODE TESTS RESULT OUT OF RANGE REFERENCE UNITS LAB L7400.0800 . Normal DIAGN Comment Result Comment: NEGATIVE FOR INTRAEPITHELIAL LESION AND MALIGNANCY. LAB L7400.0900 . Normal ADEQ Comment Result Comment: Satisfactory for evaluation. Endocervical and/or squamous metaplastic cells (endocervical component) are present. LAB L7400.1400 . Normal PERFORM Comment Result Comment: Catie Naik, Environmental Science Technician (ASCP) LAB L7400.2575 . Normal TEST METHOD Comment Result Comment: This liquid based ThinPrep(R) pap test was screened with the use of an image guided system. LAB L7400.2600 . Normal . COMM LAB L7400.2700 . Normal PAPSMR Comment Result Comment: The Pap smear is a screening test designed to aid in the detection of premalignant and malignant conditions of the uterine cervix. It is not a diagnostic procedure and should not be used as the sole means of detecting cervical cancer. Both false-positive and false-negative reports do occur. LAB L7400.2760 Negative Normal HPV APTIMA, Negative HR Result Comment: This test detects fourteen high-risk HPV types (16/18/31/33/35/39/45/ 51/52/56/58/59/66/68) without differentiation. Performed at: [address] [id number] Commissions Analyst: Cristal Pandya MD, Phone: [phone] Performed at: =[address] [id number] Commissions Analyst: Cristal Pandya MD, Phone: [phone] Performed By: #### L7400.0280 #### [facility] (refer to report for specific site) refer to report for address and phone number COMPREHENSIVE METABOLIC Collected: 09/22/2017 Status: F Source: [place] DOS SANTOS 9:23 AM [facility] REPOSITORY Order Comment: Order Date: 09/22/17 Order Info: [id number] - CMP Order Info: [id number] - LIPID Order Info: [id number] - TSH TYPE CODE TESTS RESULT OUT OF RANGE REFERENCE UNITS LAB L501.0100 74-106 mg/dL High GLU 222 Result Comment: Glucose result greater than or equal to 200 mg/dL suggests DIABETES MELLITUS per A.D.A. criteria. Please note revised GLUCOSE reference range effective 2017. LAB L501.1000 7-18 mg/dL Normal BUN 10 LAB L501.1100 0.55-1.02 mg/dL Normal CREAT,SERUM 0.89 Result Comment: The validity of the calculated GFR AND GFRAA in patients over 70 years has not been determined. Clinical correlation is essential. LAB L501.1110 >60 mL/min Normal EST GFR 71 Result Comment: Non- GFR Calc LAB L501.1115 >60 mL/min Normal EST GFR - AA 86 Result Comment: GFR Calc LAB L501.1300 10-20 RATIO Normal BUN/CRE 11.3 LAB L501.1500 6.4-8.2 g/dL T Normal PROT 6.9 LAB L501.1800 3.2-5.0 g/dL Normal ALB 3.7 LAB L501.1950 2.2-4.2 g/dL Normal GLOB 3.2 LAB L501.2000 0.9-2.4 RATIO Normal A/G 1.2 LAB L501.2200 8.5-10.1 mg/dL CA Normal 8.9 LAB L501.4100 15-37 U/L Normal AST 16 LAB L501.4305 45-117 U/L Normal ALK P 85 LAB L501.4405 13-56 U/L Normal ALT 32 LAB L501.4600 0.20-1.00 mg/dL T Normal BILI 0.40 LAB L501.5300 136-145 mmol/L NA Normal 137 LAB L501.5600 3.5-5.1 mmol/L K Normal 4.1 LAB L501.5900 98-107 mmol/L CL Normal 101 LAB L501.6100 21.0-32.0 mmol/L Normal CO2 27.0 LAB L501.6200 5-15 Normal GAP 9 Performed By: #### L500.4050, L500.4100 #### [facility] [address] [place], [place], [address] LIPID PROFILE Collected: 09/22/2017 Status: F Source: [place] 9:23 AM [facility] REPOSITORY Order Comment: Order Date: 09/22/17 Order Info: [id number] - CMP Order Info: [id number] - LIPID Order Info: [id number] - TSH TYPE CODE TESTS RESULT OUT OF RANGE REFERENCE UNITS LAB L501.4900 200 mg/dL Normal CHOL 137 Result Comment: <200 mg/dL Desirable 200-240 mg/dL Borderline >240 mg/dL High Risk LAB L501.5000 mg/dL Normal TRIG 104 Result Comment: The drugs N-Acetylcysteine and Metamizole may falsely depress this assay. Serum Triglycerides Reference Interval Normal <150 mg/dL Borderline high 150 - 199 mg/dL High 200 - 499 mg/dL Very High > or = 500 mg/dL LAB L501.6400 mg/dL Normal HDL 40 Result Comment: The drugs N-Acetylcysteine and Metamizole may falsely depress this assay. Reference Range HDL <40 mg/dL Low HDL Cholesterol HDL >or= 60 mg/dL High HDL Cholesterol LAB L501.6500 0-130 mg/dL Normal LDL 76 LAB L501.6600 5-40 mg/dL Normal VLDL 21 Performed By: #### L500.4050, L500.4100 #### [facility] [address] [place], [place], [id number] THYROID STIM HORMONE Collected: 09/22/2017 Status: F Source: MELLY (TSH) 9:23 AM [facility] REPOSITORY Order Comment: Order Date: 09/22/17 Order Info: [id number] - CMP Order Info: [id number] - LIPID Order Info: [id number] - TSH TYPE CODE TESTS RESULT OUT OF RANGE REFERENCE UNITS LAB L501.9520 0.358-3.74 uIU/mL Normal TSH 0.68 Performed By: #### L501.9520 #### [facility] [address], [address] ALLERGIES ALLERGIES DATE TYPE / CODE NAME / CODE REACTION SEVERITY SOURCE 04/06/2018 Drug No Known Unknown [facility] Allergy/4160 Allergies/F00 Hospital 81025(SNOMED 5481153(RXNOR Repository CT) M) ENCOUNTERS ENCOUNTERS ADMIT/DISCHARGE ACCOUNT ADMITTING ENCOUNTER LOCATION SOURCE NUMBER CLASS 04/06/2018/ [id number] Ambulatory BMSBuilding:B Carroll 9 1 MS.[facility] Repository 03/31/2018 [id number] Ambulatory BMSBuilding:B Melly 3 MS.CF.[facility] Repository 03/31/2018 [id number] Ambulatory Melly Carroll 2 [facility] ing:CVS Repository 03/28/2018 [id number] Ambulatory Carroll Carroll 4 [facility] ing: Repository 03/09/2018 [id number] Ambulatory Melly Melly 9 [facility] ing:CVS Repository 03/09/2018 [id number] Ambulatory BMSBuilding:W Melly 6 [facility] Repository 03/07/2018/ [id number] Ambulatory BMSBuilding:B Carroll 8 6 MS.[facility] Repository 03/03/2018/ [id number] Ambulatory BMSBuilding:B Melly 8 3 MS.[facility] Repository 03/01/2018 [id number] Ambulatory BMSBuilding:B Melly 0 MS.CF.[facility] Repository 03/01/2018 [id number] Ambulatory Carroll Melly 5 [facility] ing:PAVLAB Repository 12/30/2017 [id number] Ambulatory Melly Melly 7 [facility] ing:PAVLAB Repository 12/29/2017/ [id number] Ambulatory BMSBuilding:B Melly 8 3 MS.[facility] Repository 11/03/2017/ [id number] Ambulatory BMSBuilding:B Melly 8 8 MS.[facility] Repository 11/01/2017 [id number] Ambulatory Carroll Carroll 5 [facility] ing:OPBI Repository 10/13/2017 [id number] Ambulatory Melly Carroll 1 [facility] ing:LABSPEC Repository 10/12/2017/ [id number] Ambulatory BMSBuilding:B Carroll 8 1 [facility] Repository 09/22/2017 [id number] Ambulatory Carroll Melly 2 [facility] ing:MFPLAB Repository PAYERS PAYERS ENCOUNTER GUARANTOR PAYER SUBSCRIBER SOURCE 04/06/2018 LORENA Saavedra Primary LORENA Pickard [id number] TR Insurance:[facility] System[facility] angel TSEDOB: Community [address] [place] [address] Number: [id number] [address]Fnb: [id number] Repository Date:0105-52-99AA BOX () 400927KFIZYDYFOGC, [place] [address]FK: 04/06/2018 Secondary NOT GIVENUNK Melly Insurance:SELF PAY [facility] Number: Effective Repository Date:2018-04-06 03/31/2018 LORENA Saavedra Primary LORENA Pickard [id number] TR [facility] ASHLYB: [address] Number: [id number] [address]Vuk: [id number] Repository Date:9220-37-48IH BOX () 686879XSAXLABKBXG, [place] [address]KA: 03/31/2018 Secondary NOT GIVENUNK Melly Insurance:SELF PAY [facility] Number: Effective Repository Date:2018-03-31 03/31/2018 LORENA Saavedra Primary LORENA Saavedra Melly [id number] TR Insurance:[facility] ASHLYB: [address] Number: [id number] [address]Fpb: [id number] Repository Date:5936-66-03FA BOX () 106542KJDHSPRRABR, [place] [address]BW: 03/31/2018 Secondary NOT GIVENUNK Carroll Insurance:SELF PAY [facility] Number: Effective Repository Date:2018-03-03 03/28/2018 LORENA Saavedra Primary LORENA Pickard [id number] TR Insurance:Andreas FELIZB: Community [address] [place] [address] Number: [id number] , [place] [address]Hqf: [id number] Repository Date:5651-03-80MA BOX () 672716CMKNIPKXDME, [place] [address]DJ: 03/28/2018 Secondary NOT GIVENUNK Melly Insurance:SELF PAY [facility] Number: Effective Repository Date:2018-03-08 03/09/2018 LORENA Saavedra Primary LORENA Saavedra Melly [id number] TR Insurance:Andreas FELIZB: Community [address] [place] [address] Number: [id number] , [place] [address]Tcz: [id number] Repository Date:9524-13-77EE BOX () 924953BXIKFTOGHBV, [place] [address]AJ: 03/09/2018 Secondary NOT GIVENUNK Melly Insurance:SELF PAY [facility] Number: Effective Repository Date:2018-03-03 03/09/2018 LORENA Saavedra Primary LORENA Saavedra Melly [id number] TR Insurance:Andreas FELIZB: Community [address] [place] [address] Number: [address] [place] [address] , [place] [address]Tij: [id number] Repository Date:8343-49-80CN BOX () 576265SZJJYKYUENG, [place] [address]KT: 03/09/2018 Secondary NOT GIVENUNK Carroll Insurance:SELF PAY [facility] Number: Effective Repository Date:2018-03-09 03/07/2018 LORENA Saavedra Primary LORENA Saavedra Melly [id number] TR Insurance:Andreas FELIZB: [address] Number: [id number] , [place] [address]Xzn: [id number] Repository Date:8401-50-37LI BOX () 789896IZNHPTWZJTL, [place] [address]VX: 03/07/2018 Secondary NOT GIVENUNK Melly Insurance:SELF PAY [facility] Number: Effective Repository Date:2018 03/03/2018 LORENA Saavedra Primary LORENA Pickard [id number] TR Insurance:CIGNAPolicy ASHLYDOB: Community [address] Number: [id number] Hospital , [place] [address]Bbr: [id number] Repository Date:0994-60-40XP BOX () 672036PHYSMWMICUT, [place] [address]OL: 03/03/2018 Secondary NOT GIVENUNK Melly Insurance:SELF PAY [facility] Number: Effective Repository Date:2018-03-03 03/01/2018 LORENA Saavedra Primary LORENA Saavedra Melly [id number] TR Insurance:CIGNAPolicy ASHLYDOB: Community [facility] Number: [id number] [facility] , [place] [address]Lmj: [id number] Repository Date:3025-53-20QI BOX () 310109EMLCODKDYTP, [place] [address]BA: 03/01/2018 Secondary NOT GIVENUNK Melly Insurance:SELF PAY [facility] Number: Effective Repository Date:2018-03-01 03/01/2018 LORENA Saavedra Primary LORENA Saavedra Melly [id number] TR Insurance:CIGNAPolicy ASHLYDOB: Community [facility] Number: [id number] Hospital , [place] [address]Qqo: [id number] Repository Date:6921-34-81RB BOX () 416505YPALJGWLJPI, [place] [address]AA: 03/01/2018 Secondary NOT GIVENUNK Melly Insurance:SELF PAY [facility] Number: Effective Repository Date:2018-03-01 12/30/2017 LORENA Saavedra Primary LORENA Saavedra Melly [id number] TR Insurance:CIGNAPolicy ASHLYDOB: [facility] Number: [id number] Hospital , [place] [address]Jme: [id number] Repository Date:5992-36-24YM BOX () 906024NWTRAKCYXKZ, [place] [address]YH: 12/30/2017 Secondary NOT GIVENUNK Melly Insurance:SELF PAY [facility] Number: Effective Repository Date:2017-12-30 12/29/[id number] Insurance:CIGNAPolindia FELIZB: Community [facility] Number: [id number] [address]Ffg: [id number] Repository Date:8892-38-91GX BOX () 835143YDXIXGZIAQU, [place] [address]WU: 12/29/2017 Secondary NOT GIVENUNK Melly Insurance:SELF PAY [facility] Number: Effective Repository Date:2017-12-29 11/03/2017 [address] Pickard [id number] Insurance:CIGNAPolindia FELIZB: [address] Number: [id number] [address]Hua: [id number] Repository Date:9058-23-59XV BOX () 661892FZILMSZBVLO, [place] [address]KO: 11/03/2017 Secondary NOT GIVENUNK Melly Insurance:SELF PAY [facility] Number: Effective Repository Date:2017-11-03 11/01/2017 [address] Pickard [id number] Insurance:CIGLucian FELIZB: Community [facility] Number: [id number] [address]Snw: [id number] Repository Date:4901-39-52TZ BOX () 870934UMYXAIERISO, [place] [address]HM: 11/01/2017 Secondary NOT GIVENUNK Carroll Insurance:SELF PAY [facility] Number: Effective Repository Date:2017-10-12 10/13/2017 LORENA [id number] TR Insurance:CIGNAPolindia FELIZB: Community [facility] Number: [address] [place] [address]Rtz: [id number] Repository Date:0237-21-31XD BOX () 410353FTBHMTCNVVC, [place] [address]CQ: 10/13/2017 Secondary NOT GIVENUNK Melly Insurance:SELF PAY [facility] Number: Effective Repository Date:2017-10-13 10/12/2017 LORENA Primary LORENA [id number] TR Insurance:CIGNAJi TSEDOB: Community [facility] Number: [id number] [address]Trr: [id number] Repository Date:7335-73-35HQ BOX () 472151DCICTKOBTKO, [place] [address]IS: 10/12/2017 Secondary NOT GIVENUNK Melly Insurance:SELF PAY [facility] Number: Effective Repository Date:2017-10-12 09/22/2017 LORENA Primary LORENA [id number] TR Insurance:CIGNAJi TSEDOB: Community 24[facility] Number: [id number] , [place] [address]Ndx: [id number] Repository Date:3446-60-97VI BOX () 067104KTQSUAWIPAW, [place] [address]RX: 09/22/2017 Secondary NOT GIVENUNK Carroll Insurance:SELF PAY [facility] Number: Effective Repository Date:2017-09-22
== END ==
PROVIDERS: Family Provider Family Medicine; PCP Family Medicine; Referring Provider Nurse Practitioner Family; Visit Provider Nurse Practitioner Family
DX: R07.89 Other chest pain (principal)
CPT/HCPCS: 36415; 84484; 93005

== ENCOUNTER → 2018-03-09 15:57 | Outpatient (CLI) | payer OTHER, SELFPAY ==
[2018-03-03 13:47] VITALS: BMI 39.9
[2018-03-07 11:27] VITALS: BMI 40.0
--- NOTE | 2018-03-09 15:58 | ECHOCS_ITS ---
Reason For Study: CHEST PAIN Procedure This was a 2D Doppler, Color Flow transthoracic echocardiogram. Contrast injection was performed. Exam performed in department. Left Ventricle Normal size and thickness. The estimated ejection fraction is 75 %. Stage 1 diastolic dysfunction. No regional wall motion abnormalities noted. Right Ventricle Normal size and thickness. Normal systolic function. Atria Normal left atrium. Normal right atrium. Normal atrial septum. Mitral Valve The mitral valve is structurally normal. No prolapse or stenosis seen. Tricuspid Valve Normal tricuspid valve. Trivial tricuspid valve insufficiency. Right ventricular systolic pressure estimated to be 26 mmHg. Aortic Valve Normal aortic valve. Trisinus/trileaflet aortic valve. Pulmonic Valve Normal pulmonic valve. Great Vessels Normal aortic root. Normal arch. Normal inferior vena cava. Inferior vena cava collapse with sniff. Pericardium/Pleural No pericardial effusion. Medication 22 gauge I.V. with prn adaptor inserted into right arm. Diluted definity 5ml given slow IV push to enhance endocardial definition. MMode/2D Measurements & Calculations LVIDd: 4.1 cm IVSd: 1.1 cm Ao root diam: 2.8 cm LVIDs: 2.7 cm LVPWd: 0.99 cm RVDd: 3.6 cm FS: 34.3 % LAV(MOD-bp): 28.2 ml EDV(MOD-sp4): 65.6 ml EDV(MOD-sp2): 59.4 ml LAV(MOD-bp) Indexed: 14.2 ml/m2 ESV(MOD-sp4): 21.5 ml EF(MOD-sp2): 71.1 % LAV(MOD-sp2): 29.8 ml EF(MOD-sp4): 67.2 % LAV(MOD-sp4): 26.5 ml SV(MOD-sp4): 44.0 ml SV(MOD-sp2): 42.3 ml LA A4 area: 12.6 cm2 LA dimension(2D): 4.0 cm RA A4 area: 9.0 cm2 Time Measurements MV dec time: 0.24 sec Doppler Measurements & Calculations MV E max david: 88.0 cm/sec Lat Peak E' David: 10.8 cm/sec Med Peak E' David: 6.6 cm/sec MV A max david: 93.7 cm/sec E/E' lat: 8.2 E/E' med: 13.4 MV E/A: 0.94 Ao V2 max: 174.4 cm/sec LV V1 max: 157.5 cm/sec TR max david: 228.1 cm/sec Ao max P.2 mmHg LV V1 max P.9 mmHg TR max P.8 mmHg Interpretation Summary The estimated ejection fraction is 75 %. Stage 1 diastolic dysfunction. Trivial tricuspid valve insufficiency. Right ventricular systolic pressure estimated to be 26 mmHg. The study was technically difficult. Contrast injection was performed. There is no comparison study available. Ordering Physician: Syed Tamayo Referring Physician: OLI NEAL Performed By: Guerita Evans, DUANE, RVT
== END ==
PROVIDERS: Family Provider Family Medicine; PCP Family Medicine; Referring Provider Internal Medicine Cardiovascular Disease; Visit Provider Internal Medicine Cardiovascular Disease
DX: R07.89 Other chest pain (principal); I10 Essential (primary) hypertension; E11.9 Type 2 diabetes mellitus without complications
CPT/HCPCS: 93306; Q9957; A4216; C8929

== ENCOUNTER → 2018-03-28 20:17 | Outpatient (CLI) | payer OTHER, SELFPAY ==
[2018-03-07 11:27] VITALS: BMI 40.0
== END ==
PROVIDERS: Family Provider Family Medicine; PCP Family Medicine; Referring Provider Internal Medicine Critical Care Medicine; Visit Provider Internal Medicine Critical Care Medicine
DX: G47.33 Obstructive sleep apnea (adult) (pediatric) (principal)
CPT/HCPCS: 95811

== ENCOUNTER → 2018-03-31 10:33 | Outpatient (CLI) | payer OTHER, SELFPAY ==
[2018-03-03 13:47] VITALS: BMI 39.9
[2018-03-07 11:27] VITALS: BMI 40.0
--- NOTE | 2018-03-31 10:35 | STEWCON_ITS ---
Reason For Study: CHEST PAIN Stress Results Protocol: Shayan Protocol Maximum Predicted HR: 168 bpm Target HR: 143 bpm % Maximum Predicted HR: 98 % DurationHeart Rate Stage (mm:ss) (bpm) BP Comment BASELINE 76 122/780.2 DEFINITY STAGE 1 3:00 134 174/78 STAGE 2 3:00 157 186/70 STAGE 3 0:30 164 / 0.2 CC DEFINITY RECOVERY 122 150/72 Stress Duration: 6:30 mm:ss Maximum Stress HR: 164 bpm Baseline Echocardiogram Findings The estimated ejection fraction is 65 %. Stress Echo Wall motion Data Resting WM Intermediate WM Stress WM Resting Wall Motion Wall Motion Stress No regional wall motion No regional wall motion abnormalities noted. abnormalities noted. EKG Data Normal intervals are noted. The patient exercised according to the regular Shayan protocol for a total duration of 6:30. The maximum heart rate attained was 169 beats per minute. This was 100% of maximum predicted heart rate. The patient exercised into stage 3 of the Shayan protocol. During stress, there were no ST or T wave changes noted to suggest ischemia. No clinical angina was noted. No arrhythmias noted. Interpretation Summary The estimated ejection fraction is 65 %. Normal adequate treadmill echocardiogram. Negative for ischemia by EKG and echocardiographic criteria. No anginal symptoms noted. No arrhythmias noted. Appropriate blood pressure response to exercise. Average exercise capacity for age. Decreased sensitivity due to poor echo windows requiring Definity agent. Final LVEF is 75%. Test terminated due to the attainment of target heart rate and leg discomfort. No complications. The study was technically difficult. Contrast injection was performed. Ordering Physician: Syed Tamayo Referring Physician: Syed Tamayo Performed By: Chelle Siddiqui, SILVINOCS, RVT
== END ==
PROVIDERS: Family Provider Family Medicine; PCP Family Medicine; Referring Provider Internal Medicine Cardiovascular Disease; Visit Provider Internal Medicine Cardiovascular Disease
DX: R07.89 Other chest pain (principal); E11.9 Type 2 diabetes mellitus without complications; I10 Essential (primary) hypertension
CPT/HCPCS: 93017; 93350; Q9957; A4216; C8928

== ENCOUNTER → 2018-06-05 08:34 | Outpatient (CLI) | payer OTHER, SELFPAY ==
[2018-04-26 11:15] VITALS: BMI 40.0
[2018-06-05 10:50] LABS: ALB/GLOB Ratio 1.3 RATIO (0.9-2.4); AST(SGOT) 21 U/L (15-37); Alanine Aminotransfer ALT/SGPT 40 U/L (13-56); Albumin, Serum 3.9 g/dL (3.2-5.0); Alkaline Phosphatase 62 U/L (45-117); Anion Gap 9 (5-15); BUN 16 mg/dL (7-18); BUN/Creat Ratio 20.8 RATIO (10-20); Calcium,Total 8.8 mg/dL (8.5-10.1); Chloride 105 mmol/L (98-107); Cholesterol 128 mg/dL (200); Creatinine, Serum 0.77 mg/dL (0.55-1.02); EST Glomerular Filtration Rate 84 mL/min (>60); Est Glom Filt Rate - Afr Amer 101 mL/min (>60); Globulin 3.1 g/dL (2.2-4.2); Glucose 126 mg/dL (74-106); High Density Lipoprotein 40 mg/dL; Potassium 4.3 mmol/L (3.5-5.1); Sodium Level 138 mmol/L (136-145); Triglycerides 121 mg/dL; Very Low Density Lipoprotein 24 mg/dL (5-40)
== END ==
PROVIDERS: Family Provider Family Medicine; PCP Family Medicine; Visit Provider Family Medicine
DX: E11.9 Type 2 diabetes mellitus without complications (principal)
CPT/HCPCS: 36415; 80053; 80061

== ENCOUNTER → 2018-08-24 08:14 | Outpatient (CLI) | payer OTHER, SELFPAY ==
[2018-08-24 08:01] VITALS: BMI 39.6
--- NOTE | 2018-08-24 08:15 | RAD_ITS ---
STUDY: X-RAY - LEFT WRIST REASON FOR EXAM: Carpal tunnel pain. TECHNIQUE: 3 view(s) of the wrist were obtained. COMPARISON: None. FINDINGS: Normal visualized distal radius and ulna. Normal radiocarpal articulation. Normal distal radioulnar articulation. Normal carpal bones. Normal carpal articulations. Normal carpometacarpal articulation of the thumb. Normal second through fifth carpometacarpal articulations. Normal visualized metacarpal bones. There is a very small ossicle adjacent to the ulnar styloid process. RAD/Wrist min 3 Views IMPRESSION: Very small ossicle adjacent to the ulnar styloid process. Otherwise, unremarkable x-ray examination of the left wrist. Electronically Signed: Chad Lutz MD at 9:13 EDT Tel , Service support ,
== END ==
PROVIDERS: Family Provider Family Medicine; PCP Family Medicine; Referring Provider Orthopaedic Surgery; Visit Provider Orthopaedic Surgery
DX: M25.532 Pain in left wrist (principal)
CPT/HCPCS: 73110

== ENCOUNTER 2018-09-13 10:41 | Day surgery (SDC) | payer OTHER, SELFPAY ==
[2018-08-24 08:01] VITALS: BMI 39.6
--- NOTE | 2018-08-24 09:18 | HP_ITS ---
I have re-examined the patient. There are no clinical changes since date of exam. Intake Vital Signs 08/24/18 Height 5 ft 2 in 08/24/18 Weight: 217 lb 08/24/18 Body Mass Index (BMI) 39.6 Intake Visit Reasons: left carpal tunnel Chief Complaint: Daytime fatigue Is patient in pain?: No Allergies No Known Allergies Allergy (Verified 04/26/18 11:14) Medications atorvastatin 40 mg tablet 40 mg PO QDAY 10/12/17 [History Confirmed 04/26/18] cholecalciferol (vitamin D3) 1,000 unit capsule 1,000 unit PO QDAY 10/12/17 [History Confirmed 04/26/18] escitalopram 10 mg tablet 10 mg PO QDAY 10/12/17 [History Confirmed 04/26/18] lisinopril 10 mg-hydrochlorothiazide 12.5 mg tablet 1 tab PO QDAY 10/12/17 [History Confirmed 04/26/18] ropinirole 0.5 mg tablet 0.5 mg PO QHS 10/12/17 [History Confirmed 04/26/18] spironolactone 100 mg tablet 100 mg PO QDAY 10/12/17 [History Confirmed 04/26/18] aspirin 81 mg tablet,delayed release 81 mg PO DAILY 03/03/18 [History Confirmed 04/26/18] metformin 500 mg tablet See Rx Instructions PO .COMPLEX tab 03/03/18 [History Confirmed 04/26/18] canagliflozin 100 mg tablet 100 mg PO DAILY #30 tab 04/10/18 [Rx Confirmed 04/26/18] sitagliptin 100 mg tablet 100 mg PO DAILY 08/24/18 [History Confirmed 08/24/18] PFSH Medical History Chest pressure (Acute) PCOS (polycystic ovarian syndrome) (Chronic) Hypertension (Chronic) Diabetes (Chronic) Surgical History H/O bilateral oophorectomy (Chronic) H/O: hysterectomy (Chronic) History of breast biopsy (Chronic) History of carpal tunnel surgery (Chronic) History of laparoscopy (Chronic) History of tonsillectomy (Chronic) Family History Father Cancer Mother Pulmonary embolism Grandmother Diabetes Brother Kidney disease Grandfather No problems noted. Social History Smoking Status: Never smoker alcohol intake: never substance use type: does not use caffeine: Yes what type of physical activity do you participate in: walking seatbelt use: always do you feel safe at home: Yes additional social history: Nii- Patient works at [employer] left carpal tunnel: Surgical H&P: Yes Details: Parts of this documentation were recorded by a scribe, this documentation accurately reflects the service provided and the decisions made by me, Lidia Ashraf, 08/24/18 0800. NENA LIMON is a 53 year old F new patient here today for her left hand. Carpal tunnel symptoms. Patient reports she had an EMG and 7 years ago and reported that she had BL carpal tunnel syndrome and she had her right CTR completed at [facility] along with a trigger finger release about 7 years ago. Patient Denies any injection of the left. Patient reports that all her fingers go numb most often her 3rd and 1st fingers are the first to go numb. At times she has a sharp pain in her wrist with movement. Has weakness trouble holding objects. ROS Const Reports system reviewed and no additional complaints, except as docu Eyes Reports system reviewed and no additional complaints, except as docu ENT Reports system reviewed and no additional complaints, except as docu Card Reports system reviewed and no additional complaints, except as docu Resp Reports system reviewed and no additional complaints, except as docu GI Reports system reviewed and no additional complaints, except as docu Musc Reports as per HPI Skin/Breast Reports system reviewed and no additional complaints, except as docu Neuro Yes system reviewed and no additional complaints, except as docu Psych Reports system reviewed and no additional complaints, except as docu Endo Reports system reviewed and no additional complaints, except as docu Jayson/Lymph Reports system reviewed and no additional complaints, except as docu Aller/Immun Reports system reviewed and no additional complaints, except as docu Ortho Exam Left Wrist/Hand Left Wrist: Yes ROM-Extension 0-60, Yes ROM-Flexion 0-80 and Yes Durken's Test Motor: EPL: 5, FDP-2: 4, 1st Dorsal Interosseous: 5, APB: 4 Sensation: Radial: I, Ulnar: I, Median: D WRIST: thenar atrophy Assessment & Plan Problems 1. Left carpal tunnel syndrome G56.02 Plan Reviewed the post op restrictions and patient elects to proceed. xrays negative today. Reviewed the pre-operative plans with the patient. Risks and benefits of the procedure were fully explained, including but not limited to infection, neurovascular injury, continued pain, arthritis, stiffness, need for further surgery, re-injury, DVT, PE, general risks of anesthesia, and loss of limb or life. The patient understands all the risks and does wish to proceed with written consent. Follow up post op or sooner if pain, swelling, numbness or associated symptoms, or concerns develop. All questions answered. Patient in agreement of plan. Orders Orders: Wrist min 3 Views Today M25.531 Coding Level of Care Code Off vis,new,level 3 Diagnoses Left carpal tunnel syndrome G56.02 08/24/18 0918 <Electronically signed by Lidia dunham DO> Date _ Lidia Ashraf DO
[2018-08-30 11:08] VITALS: BMI 39.6
[2018-09-13 11:01] VITALS: BP 131/81; PULSE 70; RESP 18; TEMP 36.3; O2SAT 96; BMI 39.5
[2018-09-13 12:21] LABS: Bedside Glucose 115 mg/dL (70-110)
--- NOTE | 2018-09-13 15:18 | DCINST_ITS ---
Discharge Diet: No Restrictions - keep dressing clean, dry, and intact until seen in clinic in 2 weeks, call with concerns, may use hand as tolerated Discharge Activity: May Not Drive May shower in (days): 1 Ice area for (Minutes): 20 - Every hour while awake. Weight Bearing Status: Weight bearing as tolerated Keep extremity elevated above heart level: Operative Extremity Call your doctor if your incision/area has: Continuous Slow Oozing, Sudden Increased Bleeding, Increased Pain/ Swelling, Increased Redness, Foul Smelling Discharge Call your doctor if you observe: Fever of 101 or Higher, Coldness, Increased Pain, Numbness or Tingling, Change in Color, Calf discomfort Allergies/Adverse Reactions: Allergies No Known Allergies Allergy (Verified 09/06/18 08:48) Medications to take at Discharge atorvastatin 40 mg tablet 40 mg PO QDAY 10/12/17 cholecalciferol (vitamin D3) 1,000 unit capsule 1,000 unit PO QDAY 10/12/17 escitalopram 10 mg tablet 10 mg PO QDAY 10/12/17 lisinopril 10 mg-hydrochlorothiazide 12.5 mg tablet 1 tab PO QDAY 10/12/17 ropinirole 0.5 mg tablet 0.75 mg PO QHS 10/12/17 aspirin 81 mg tablet,delayed release 81 mg PO DAILY 03/03/18 metformin 500 mg tablet 100 mg PO BID tab 03/03/18 canagliflozin 100 mg tablet 100 mg PO DAILY #30 tab 04/10/18 sitagliptin 100 mg tablet 100 mg PO DAILY 08/24/18 Acetaminophen/Codeine #3 [Tylenol #3 Tablet] 1 - 2 tablet PO Q6H PRN PRN #30 tablet 09/13/18 The following prescriptions were given: Acetaminophen/Codeine #3 [Tylenol #3 Tablet] 1 - 2 tablet PO Q6H PRN PRN #30 tablet PRN Reason: Pain Transmission Status: Sent to [facility] Primary Care Physician: Moises Weiner MD [Primary Care Provider] - Test Results: Test results from this visit will be discussed in further detail at your follow- up appointment, if applicable. Please Follow Up With: Lidia Ashraf, DO - [phone]
--- NOTE | 2018-09-13 15:18 | PCM.OPRPT ---
Report of Operation Date of Procedure: 09/13/18 Pre-Operative Diagnosis: left carpal tunnel syndrome Post-Operative Diagnosis: same Surgery/Procedure Performed:: left carpal tunnel release Type of Anesthesia:: Trisha Davis Anesthesiologist: Bradley Fischer Estimated Blood Loss (mL): none Fluids Replaced: 600cc lr Description of Procedure: Preoperative note Patient is a { 53 year old } patient with nerve conduction study confirming carpal tunnel syndrome. Patient failed conservative treatment for her carpal tunnel elected proceed with left carpal tunnel release. Risks benefits and alternatives surgery discussed with patient. Risks including but not limited to blood loss, blood clot, infection, neurovascular injury, failure procedure, loss of life and loss of limb. Patient is aware like proceed with left carpal tunnel release. Operative note Patient seen and examined preoperative holding area. Left hand was marked. History and physical and consent reviewed. Patient was brought to the operating room placed supine on the operating table. Sign in, anesthesia, antibiotics were administered. Left upper extremity was prepped and draped after Trisha block was initiated. All bony prominences well-padded SCDs placed on bilateral lower extremities. We marked out our incisions for our carpal tunnel release at the intersection of Suzette's line in the fourth ray flexed. We extended about a centimeter and a half. Timeout was performed. We then checked ensure that the [place] block was working with pickups which it was. We then used a 15 blade to make a skin incision. We then dissected down tenotomy syllable of the transverse carpal ligament. We then used a new 15 blade cut through the transverse carpal ligament down to the level of the median nerve. We then further released the median nerve the combination of the 15 blade and tenotomies. The nerve was grayish in color and adherent to the transverse carpal ligament volarly. We released the transverse carpal ligament distally to the fat pad and then proximally under standard technique. We then palpated to ensure that we released all of the transverse carpal ligament which we did. We irrigated the incision with copious amounts of sterile saline. All bleeders were coagulated. The incision was closed with interrupted 4-0 nylon stitches. Tourniquet was deflated for total working time of 16 minutes. Patient tolerated procedure well there were no complications. Patient transferred to recovery room in stable condition. Postoperative note Hospital pharmacy has prescription Leave dressing clean dry and intact Follow-up in 2 weeks Call with concerns This note was generated with [employer] software. It may contain incorrect words, spelling, and punctuation that were not noted in checking the note before signing.
[2018-09-13] MEDS: Cefazolin 2 GM in 0.9% Normal Saline 100 ML IV (15:19)
[2018-09-13 16:03] VITALS: BP 109/83; BP 131/81; PULSE 86; RESP 16; TEMP 36.2; O2SAT 93
[2018-09-13 16:10] VITALS: BP 103/78; BP 131/81; PULSE 80; RESP 16; O2SAT 93
[2018-09-13 16:15] VITALS: BP 116/72; BP 131/81; PULSE 67; RESP 16; O2SAT 94
[2018-09-13 16:25] VITALS: BP 107/71; BP 131/81; PULSE 75; RESP 16; TEMP 36.6; O2SAT 94
[2018-09-13 17:10] VITALS: BP 128/81; BP 131/81; PULSE 72; RESP 16; TEMP 36.1; O2SAT 97
--- NOTE | 2018-09-19 17:32 | PCM.HP.BLA ---
History and Physical Date of Admission: 09/13/18 [facility] Medical Records Department [address] [place] [address] History and Physical 08/24/18917 MR#: [id number] Acct: [id number] Name: NENA LIMON Rep #: [id number] : 1965 53 From: Lidia Ashraf DO PCP: Saji Weiner MD Status: [facility] Location: [place] [address] I have re-examined the patient. There are no clinical changes since date of exam. Intake Vital Signs 08/24/18 Height 5 ft 2 in 08/24/18 Weight: 217 lb 08/24/18 Body Mass Index (BMI) 39.6 Intake Visit Reasons: left carpal tunnel Chief Complaint: Daytime fatigue Is patient in pain?: No Allergies No Known Allergies Allergy (Verified 04/26/18 11:14) Medications atorvastatin 40 mg tablet 40 mg PO QDAY 10/12/17 [History Confirmed 04/26/18] cholecalciferol (vitamin D3) 1,000 unit capsule 1,000 unit PO QDAY 10/12/17 [History Confirmed 09/06] escitalopram 10 mg tablet 10 mg PO QDAY 10/12/17 [History Confirmed 04/26/18] lisinopril 10 mg-hydrochlorothiazide 12.5 mg tablet 1 tab PO QDAY 10/12/17 [History Confirmed 09/06] ropinirole 0.5 mg tablet 0.5 mg PO QHS 10/12/17 [History Confirmed 04/26/18] spironolactone 100 mg tablet 100 mg PO QDAY 10/12/17 [History Confirmed 04/26/18] aspirin 81 mg tablet,delayed release 81 mg PO DAILY 03/03/18 [History Confirmed 04/26/18] metformin 500 mg tablet See Rx Instructions PO .COMPLEX tab 03/03/18 [History Confirmed ] canagliflozin 100 mg tablet 100 mg PO DAILY #30 tab 04/10/18 [Rx Confirmed 04/26/18] sitagliptin 100 mg tablet 100 mg PO DAILY 08/24/18 [History Confirmed 08/24/18] PFSH Medical History Chest pressure (Acute) 1
== END 2018-09-13 17:20 | disposition home or self-care (01) ==
LOC: SDC 10:42 → AC 10:43
PROVIDERS: Family Provider Family Medicine; PCP Family Medicine; Referring Provider Orthopaedic Surgery; Visit Provider Orthopaedic Surgery
PROC: (CPT 64721; principal; 2018-09-13 11:55)
DX: G56.02 Carpal tunnel syndrome, left upper limb (principal); I10 Essential (primary) hypertension; E11.9 Type 2 diabetes mellitus without complications; E78.00 Pure hypercholesterolemia, unspecified; F41.9 Anxiety disorder, unspecified; G47.30 Sleep apnea, unspecified; G25.81 Restless legs syndrome; Z79.84 Long term (current) use of oral hypoglycemic drugs; Z79.82 Long term (current) use of aspirin; Z79.899 Other long term (current) drug therapy
CPT/HCPCS: 64721; 82962; J7120; J2405

== ENCOUNTER 2018-09-14 16:21 | Outpatient (RCR) | payer OTHER, SELFPAY ==
[2018-08-24 08:01] VITALS: BMI 39.6
[2018-09-13 11:01] VITALS: BMI 39.5
== END 2018-09-17 23:59 ==
LOC: DC 16:21
PROVIDERS: Family Provider Family Medicine; PCP Family Medicine; Visit Provider Nurse Practitioner Women's Health
DX: E11.9 Type 2 diabetes mellitus without complications (principal); Z71.3 Dietary counseling and surveillance
CPT/HCPCS: G0108

== ENCOUNTER 2018-10-05 14:30 | Outpatient (RCR) | payer OTHER, SELFPAY | END 2018-10-18 23:59 | LOC: DC 14:30 | PROVIDERS: Family Provider Family Medicine; PCP Family Medicine; Visit Provider Nurse Practitioner Women's Health | DX: E11.9 Type 2 diabetes mellitus without complications (principal); Z68.41 Body mass index [BMI] 40.0-44.9, adult; Z71.3 Dietary counseling and surveillance | CPT/HCPCS: 97802; 97803 ==

== ENCOUNTER → 2018-10-06 | Outpatient (CLI) | payer OTHER, SELFPAY ==
[2018-09-27 15:15] VITALS: BMI 39.5
[2018-10-06 09:20] LABS: Hemoglobin A1c 6.8 % (4.2-6.3)
[2018-10-06 09:26] LABS: Microalbumin,Random Urine 6.7 mg/L (NO RANGE EST.); Microalbumin:Creatinine Ratio 7.2 mg/g CRE (<30 mg/g CRE)
[2018-10-06 09:29] LABS: ALB/GLOB Ratio 1.2 RATIO (0.9-2.4); AST(SGOT) 12 U/L (15-37); Alanine Aminotransfer ALT/SGPT 31 U/L (13-56); Albumin, Serum 3.7 g/dL (3.2-5.0); Alkaline Phosphatase 68 U/L (45-117); Anion Gap 8 (5-15); BUN 12 mg/dL (7-18); BUN/Creat Ratio 14.4 RATIO (10-20); Calcium,Total 8.9 mg/dL (8.5-10.1); Chloride 108 mmol/L (98-107); Cholesterol 129 mg/dL (200); Creatinine, Serum 0.83 mg/dL (0.55-1.02); EST Glomerular Filtration Rate 76 mL/min (>60); Est Glom Filt Rate - Afr Amer 92 mL/min (>60); Glucose 115 mg/dL (74-106); High Density Lipoprotein 46 mg/dL; Potassium 4.2 mmol/L (3.5-5.1); Protein, Total 6.7 g/dL (6.4-8.2); Sodium Level 143 mmol/L (136-145); T4 Free Direct 0.88 ng/dL (0.76-1.46); Thyroid Stim Hormone (TSH) 0.62 uIU/mL (0.358-3.74); Triglycerides 101 mg/dL; Very Low Density Lipoprotein 20 mg/dL (5-40)
[2018-10-06 09:46] LABS: Vitamin D,25 Hydroxy 38.2 ng/mL (29.95-100.01)
== END | disposition home or self-care (01) ==
LOC: PAVLAB 08:39
PROVIDERS: Family Provider Family Medicine; PCP Family Medicine; Referring Provider Internal Medicine Endocrinology, Diabetes & Metabolism; Visit Provider Internal Medicine Endocrinology, Diabetes & Metabolism
DX: E55.9 Vitamin D deficiency, unspecified (principal); E11.9 Type 2 diabetes mellitus without complications
CPT/HCPCS: 36415; 80053; 80061; 82043; 82306; 82570; 83036; 84439; 84443

== ENCOUNTER 2018-11-13 17:00 | Outpatient (RCR) | payer OTHER, SELFPAY ==
[2018-09-27 15:15] VITALS: BMI 39.5
== END 2018-11-18 23:59 ==
LOC: DC 17:00
PROVIDERS: Family Provider Family Medicine; PCP Family Medicine; Visit Provider Nurse Practitioner Women's Health
DX: E11.9 Type 2 diabetes mellitus without complications (principal); E66.01 Morbid (severe) obesity due to excess calories; Z68.41 Body mass index [BMI] 40.0-44.9, adult; Z71.3 Dietary counseling and surveillance
CPT/HCPCS: G0108

== ENCOUNTER 2018-11-23 09:18 | Outpatient (RCR) | payer OTHER, SELFPAY ==
[2018-11-16 08:56] VITALS: BMI 40.8
== END 2018-12-18 23:59 ==
LOC: DC 09:18
PROVIDERS: Family Provider Family Medicine; PCP Family Medicine; Visit Provider Nurse Practitioner Women's Health
DX: E11.9 Type 2 diabetes mellitus without complications (principal); E66.01 Morbid (severe) obesity due to excess calories; Z68.41 Body mass index [BMI] 40.0-44.9, adult; Z71.3 Dietary counseling and surveillance
CPT/HCPCS: G0109

== ENCOUNTER 2018-12-21 16:01 | Outpatient (RCR) | payer OTHER, SELFPAY ==
[2018-11-16 08:56] VITALS: BMI 40.8
== END 2019-01-18 23:59 ==
LOC: DC 16:01
PROVIDERS: Family Provider Family Medicine; PCP Family Medicine; Visit Provider Nurse Practitioner Women's Health
DX: E11.9 Type 2 diabetes mellitus without complications (principal); E66.01 Morbid (severe) obesity due to excess calories; Z68.41 Body mass index [BMI] 40.0-44.9, adult; Z71.3 Dietary counseling and surveillance
CPT/HCPCS: G0109

== ENCOUNTER → 2019-01-10 08:16 | Outpatient (CLI) | payer OTHER, SELFPAY ==
[2018-11-16 08:56] VITALS: BMI 40.8
[2019-01-10 08:55] LABS: Hemoglobin A1c 6.9 % (4.2-6.3)
[2019-01-10 08:59] LABS: ALB/GLOB Ratio 1.3 RATIO (0.9-2.4); AST(SGOT) 16 U/L (15-37); Alanine Aminotransfer ALT/SGPT 40 U/L (13-56); Albumin, Serum 3.9 g/dL (3.2-5.0); Alkaline Phosphatase 74 U/L (45-117); Anion Gap 4 (5-15); BUN 13 mg/dL (7-18); Chloride 106 mmol/L (98-107); Cholesterol 139 mg/dL (200); Creatinine, Serum 0.81 mg/dL (0.55-1.02); EST Glomerular Filtration Rate 78 mL/min (>60); Est Glom Filt Rate - Afr Amer 95 mL/min (>60); Globulin 3.1 g/dL (2.2-4.2); Glucose 121 mg/dL (74-106); High Density Lipoprotein 43 mg/dL; Potassium 4.3 mmol/L (3.5-5.1); Sodium Level 138 mmol/L (136-145); T4 Free Direct 0.87 ng/dL (0.76-1.46); Thyroid Stim Hormone (TSH) 1.21 uIU/mL (0.358-3.74); Triglycerides 117 mg/dL; Very Low Density Lipoprotein 23 mg/dL (5-40)
[2019-01-10 09:03] LABS: Microalbumin,Random Urine 7.2 mg/L (NO RANGE EST.); Microalbumin:Creatinine Ratio 7.5 mg/g CRE (<30 mg/g CRE)
[2019-01-10 09:49] LABS: Vitamin D,25 Hydroxy 36.7 ng/mL (29.95-100.01)
== END ==
PROVIDERS: Family Provider Family Medicine; PCP Family Medicine; Referring Provider Internal Medicine Endocrinology, Diabetes & Metabolism; Visit Provider Internal Medicine Endocrinology, Diabetes & Metabolism
DX: E55.9 Vitamin D deficiency, unspecified (principal); E11.65 Type 2 diabetes mellitus with hyperglycemia
CPT/HCPCS: 36415; 80053; 80061; 82043; 82306; 82570; 83036; 84439; 84443

== ENCOUNTER → 2019-01-16 16:57 | Outpatient (CLI) | payer OTHER, SELFPAY ==
[2018-11-16 08:56] VITALS: BMI 40.8
--- NOTE | 2019-01-16 17:00 | BI_ITS ---
MAMMOGRAPHY - BILATERAL SCREENING REASON FOR EXAM: Female, 53 years old. Routine annual screening examination. PERTINENT HISTORY: Non-contributory. Prior left ultrasound-guided breast biopsy. TECHNIQUE: Digital bilateral breast julius (3D mammographic acquisition) in the CC and MLO projections. 2-D mediolateral oblique (MLO) and craniocaudad (CC) views of both breasts were obtained. CAD: Full Field Digital Mammography with Computer Added Detection was performed. COMPARISON: Comparison is made with prior study dated November 01, 2017. FINDINGS: Breast Composition: The breasts are heterogeneously dense, which may obscure small masses. There are no dominant masses or suspicious calcifications. A tissue clip marker is seen in the upper lateral aspect of the left breast. This is unchanged. No other significant abnormalities are identified. There has been no significant change since the prior study. BI/SCREEN MAMM (CAD) W/JULIUS BILAT IMPRESSION: Stable bilateral screening mammogram. Yearly follow-up mammogram recommended. (A) ASSESSMENT CATEGORY: BIRADS Category 2: Benign. A letter regarding these results will be sent to the patient by the facility within 30 days. Approximately 10% of breast cancers are not detected by mammography. A normal mammogram should not delay biopsy of a clinically suspicious abnormality. [id number] Electronically Signed: Austen Malin, at 9:27 EDT , Service support ,
== END ==
PROVIDERS: Family Provider Family Medicine; PCP Family Medicine; Referring Provider Nurse Practitioner Women's Health; Visit Provider Nurse Practitioner Women's Health
DX: Z12.31 Encounter for screening mammogram for malignant neoplasm of breast (principal)
CPT/HCPCS: 77063; 77067

== ENCOUNTER 2019-01-25 14:14 | Outpatient (RCR) | payer OTHER, SELFPAY ==
[2018-11-16 08:56] VITALS: BMI 40.8
== END 2019-02-17 23:59 ==
LOC: DC 14:14
PROVIDERS: Family Provider Family Medicine; PCP Family Medicine; Visit Provider Nurse Practitioner Women's Health
DX: Z71.3 Dietary counseling and surveillance (principal); E11.9 Type 2 diabetes mellitus without complications; Z68.41 Body mass index [BMI] 40.0-44.9, adult
CPT/HCPCS: G0109

== ENCOUNTER 2019-02-22 17:04 | Outpatient (RCR) | payer OTHER, SELFPAY ==
[2019-02-08 14:02] VITALS: BMI 40.8
== END 2019-02-22 23:59 | disposition home or self-care (01) ==
LOC: DC 17:04
PROVIDERS: Family Provider Family Medicine; PCP Family Medicine; Visit Provider Nurse Practitioner Women's Health
DX: Z71.3 Dietary counseling and surveillance (principal); E11.9 Type 2 diabetes mellitus without complications; E66.01 Morbid (severe) obesity due to excess calories; Z68.41 Body mass index [BMI] 40.0-44.9, adult
CPT/HCPCS: G0109

== ENCOUNTER → 2019-04-18 07:56 | Outpatient (CLI) | payer OTHER, SELFPAY ==
[2019-02-08 14:02] VITALS: BMI 40.8
[2019-04-18 08:59] LABS: Hemoglobin A1c 6.8 % (4.2-6.3)
[2019-04-18 09:02] LABS: ALB/GLOB Ratio 1.2 RATIO (0.9-2.4); AST(SGOT) 18 U/L (15-37); Alanine Aminotransfer ALT/SGPT 48 U/L (13-56); Albumin, Serum 3.8 g/dL (3.2-5.0); Alkaline Phosphatase 77 U/L (45-117); Anion Gap 7 (5-15); BUN 12 mg/dL (7-18); BUN/Creat Ratio 13.1 RATIO (10-20); Calcium,Total 9.2 mg/dL (8.5-10.1); Chloride 109 mmol/L (98-107); Creatinine, Serum 0.91 mg/dL (0.55-1.02); EST Glomerular Filtration Rate 68 mL/min (>60); Est Glom Filt Rate - Afr Amer 83 mL/min (>60); Globulin 3.2 g/dL (2.2-4.2); Glucose 139 mg/dL (74-106); Potassium 4.2 mmol/L (3.5-5.1); Sodium Level 142 mmol/L (136-145)
== END ==
LOC: PAVLAB 07:57
PROVIDERS: PCP Family Medicine; Referring Provider Internal Medicine Endocrinology, Diabetes & Metabolism; Visit Provider Internal Medicine Endocrinology, Diabetes & Metabolism
DX: E11.65 Type 2 diabetes mellitus with hyperglycemia (principal)
CPT/HCPCS: 36415; 80053; 83036

== ENCOUNTER → 2019-08-16 07:58 | Outpatient (CLI) | payer OTHER, SELFPAY ==
[2019-02-08 14:02] VITALS: BMI 40.8
[2019-08-16 08:38] LABS: Hemoglobin A1c 6.3 % (3.8-5.6)
[2019-08-16 08:41] LABS: Microalbumin,Random Urine 14.3 mg/L (NO RANGE EST.); Microalbumin:Creatinine Ratio 6.4 mg/g CRE (<30 mg/g CRE)
[2019-08-16 08:47] LABS: ALB/GLOB Ratio 1.2 RATIO (0.9-2.4); AST(SGOT) 22 U/L (15-37); Alanine Aminotransfer ALT/SGPT 55 U/L (13-56); Albumin, Serum 3.7 g/dL (3.2-5.0); Alkaline Phosphatase 70 U/L (45-117); Anion Gap 7 (5-15); BUN 14 mg/dL (7-18); BUN/Creat Ratio 15.3 RATIO (10-20); Chloride 106 mmol/L (98-107); Cholesterol 220 mg/dL (200); Creatinine, Serum 0.91 mg/dL (0.55-1.02); EST Glomerular Filtration Rate 68 mL/min (>60); Est Glom Filt Rate - Afr Amer 83 mL/min (>60); Globulin 3.1 g/dL (2.2-4.2); Glucose 124 mg/dL (74-106); High Density Lipoprotein 47 mg/dL; Potassium 4.4 mmol/L (3.5-5.1); Protein, Total 6.8 g/dL (6.4-8.2); Sodium Level 139 mmol/L (136-145); Thyroid Stim Hormone (TSH) 0.83 uIU/mL (0.358-3.74); Triglycerides 172 mg/dL; Very Low Density Lipoprotein 34 mg/dL (5-40)
== END ==
PROVIDERS: PCP Family Medicine; Referring Provider Internal Medicine Endocrinology, Diabetes & Metabolism; Visit Provider Internal Medicine Endocrinology, Diabetes & Metabolism
DX: R94.6 Abnormal results of thyroid function studies (principal); E11.65 Type 2 diabetes mellitus with hyperglycemia
CPT/HCPCS: 36415; 80053; 80061; 82043; 82570; 83036; 84443

== ENCOUNTER → 2019-09-06 08:10 | Outpatient (CLI) | payer OTHER, SELFPAY ==
[2019-02-08 14:02] VITALS: BMI 40.8
--- NOTE | 2019-09-06 08:11 | RAD_ITS ---
STUDY: X-RAY - RIGHT WRIST REASON FOR EXAM: Female, 54 years old. PAIN WITHOUT INJURY TECHNIQUE: 3 view(s) of the wrist were obtained. COMPARISON: None. FINDINGS: Normal visualized distal radius and ulna. Normal radiocarpal articulation. Normal distal radioulnar articulation. Normal carpal bones. Normal carpal articulations. Normal carpometacarpal articulation of the thumb. Normal second through fifth carpometacarpal articulations. Normal visualized metacarpal bones. The soft tissue structures are unremarkable. There is no demonstrated acute fracture. RAD/Wrist min 3 Views IMPRESSION: Normal x-ray examination of the wrist. Electronically Signed: Abhay Zepeda MD at 17:15 EDT , Service support ,
== END ==
PROVIDERS: PCP Family Medicine; Referring Provider Physician Assistant; Visit Provider Physician Assistant
DX: M25.531 Pain in right wrist (principal)
CPT/HCPCS: 73110

== ENCOUNTER → 2020-02-18 07:23 | Outpatient (CLI) | payer OTHER, SELFPAY ==
[2020-01-22 10:19] VITALS: BMI 39.7
--- NOTE | 2020-02-18 07:25 | BI_ITS ---
MAMMOGRAPHY - BILATERAL SCREENING REASON FOR EXAM: Female, 54 years old. Routine annual screening examination. PERTINENT HISTORY: Grandmother with breast cancer. Prior left ultrasound-guided breast biopsy. TECHNIQUE: Digital bilateral breast julius (3D mammographic acquisition) in the CC and MLO projections. 2-D mediolateral oblique (MLO) and craniocaudad (CC) views of both breasts were obtained. CAD: Full Field Digital Mammography with Computer Added Detection was performed. COMPARISON: Comparison is made with prior study dated 01/16/2019 and 11/01/2017. FINDINGS: Breast Composition: The breasts are heterogeneously dense, which may obscure small masses. There are no dominant masses or suspicious calcifications. A tissue clip marker is once again seen in the upper lateral aspect of the left breast. This is unchanged. No other significant abnormalities are identified. There has been no significant change since the prior study. BI/SCREEN MAMM (CAD) W/JULIUS BILAT IMPRESSION: Stable bilateral screening mammogram. Yearly follow-up mammogram recommended. (A) ASSESSMENT CATEGORY: BIRADS Category 2: Benign. A letter regarding these results will be sent to the patient by the facility within 30 days. Approximately 10% of breast cancers are not detected by mammography. A normal mammogram should not delay biopsy of a clinically suspicious abnormality. [id number] Electronically Signed: Austen Malin, at 8:55 EST , Service support ,
== END ==
PROVIDERS: PCP Family Medicine; Referring Provider Nurse Practitioner Women's Health; Visit Provider Nurse Practitioner Women's Health
DX: Z12.31 Encounter for screening mammogram for malignant neoplasm of breast (principal)
CPT/HCPCS: 77063; 77067

== ENCOUNTER → 2020-04-21 07:38 | Outpatient (CLI) | payer OTHER, SELFPAY ==
[2020-04-21 08:57] LABS: ALB/GLOB Ratio 1.2 RATIO (0.9-2.4); AST(SGOT) 18 U/L (15-37); Alanine Aminotransfer ALT/SGPT 41 U/L (13-56); Albumin, Serum 3.9 g/dL (3.2-5.0); Alkaline Phosphatase 82 U/L (45-117); Anion Gap 8 (5-15); BUN 13 mg/dL (7-18); BUN/Creat Ratio 13.8 RATIO (10-20); Chloride 104 mmol/L (98-107); Cholesterol 137 mg/dL (200); Creatinine, Serum 0.94 mg/dL (0.55-1.02); EST Glomerular Filtration Rate 66 mL/min (>60); Est Glom Filt Rate - Afr Amer 80 mL/min (>60); Globulin 3.2 g/dL (2.2-4.2); Glucose 127 mg/dL (74-106); High Density Lipoprotein 40 mg/dL; Potassium 3.9 mmol/L (3.5-5.1); Protein, Total 7.1 g/dL (6.4-8.2); Sodium Level 138 mmol/L (136-145); Thyroid Stim Hormone (TSH) 1.28 uIU/mL (0.358-3.74); Triglycerides 124 mg/dL; Very Low Density Lipoprotein 25 mg/dL (5-40)
[2020-04-21 15:48] LABS: Xtra Tube EP Lab EXTRA TUBE
== END ==
PROVIDERS: PCP Family Medicine; Referring Provider Family Medicine; Visit Provider Family Medicine
DX: E11.9 Type 2 diabetes mellitus without complications (principal)
CPT/HCPCS: 36415; 80053; 80061; 84443

== ENCOUNTER → 2020-05-08 08:41 | Outpatient (CLI) | payer OTHER, SELFPAY | PROVIDERS: PCP Family Medicine; Referring Provider Nurse Practitioner Women's Health; Visit Provider Nurse Practitioner Women's Health | DX: Z83.2 Family history of diseases of the blood and blood-forming organs and certain disorders involving the immune mechanism (principal) | CPT/HCPCS: 36415; 81241 ==

== ENCOUNTER → 2020-11-04 07:44 | Outpatient (CLI) | payer OTHER, SELFPAY ==
[2020-10-08 17:09] VITALS: BMI 38.2
[2020-11-04 08:10] LABS: Absolute Lymphocyte Count 2.44 X10^3/uL (0.83-4.51); Absolute Neutrophil Count 4.7 X10^3/uL (2.0-7.7); Basophil# 0.04 X10^3/uL; Basophil% 0.5 % (0-1); Eosinophils% 2.5 % (0-5); Hematocrit 44.9 % (37-47); Hemoglobin 14.4 g/dL (12.0-15.0); Lymphocyte # 2.44 X10^3/ul (0.83-4.51); Lymphocyte % 30.5 % (19-41); Mean Corp Hgb Conc 32.1 g/dL (32-36); Mean Corpuscular Hgb 28.8 pg (27.0-32.0); Mean Corpuscular Volume 89.8 fL (81-99); Mean Platelet Vol. 11.2 fl (6.2-12.0); Monocyte# 0.56 X10^3/uL; NRBC Flagged by Analyzer 0 % (0-5); Neutrophil # 4.71 X10^3/uL (2.7-7.7); Neutrophil % 58.9 % (47-70); Platelet Count 270 K/mm3 (150-450); RBC Distribution Width CV 14.1 % (11.6-14.6); RBC Distribution Width SD 46.4 fl (35.1-43.9)
[2020-11-04 08:33] LABS: ALB/GLOB Ratio 1.2 RATIO (0.9-2.4); AST(SGOT) 23 U/L (15-37); Alanine Aminotransfer ALT/SGPT 55 U/L (13-56); Albumin, Serum 3.8 g/dL (3.2-5.0); Alkaline Phosphatase 83 U/L (45-117); Anion Gap 7 (5-15); BUN 12 mg/dL (7-18); BUN/Creat Ratio 14.3 RATIO (10-20); Calcium,Total 8.9 mg/dL (8.5-10.1); Chloride 107 mmol/L (98-107); Creatinine, Serum 0.84 mg/dL (0.55-1.02); EST Glomerular Filtration Rate 75 mL/min (>60); Est Glom Filt Rate - Afr Amer 91 mL/min (>60); Globulin 3.2 g/dL (2.2-4.2); Glucose 126 mg/dL (74-106); Sodium Level 140 mmol/L (136-145)
== END ==
PROVIDERS: PCP Internal Medicine; Referring Provider Internal Medicine; Visit Provider Internal Medicine
DX: E11.9 Type 2 diabetes mellitus without complications (principal)
CPT/HCPCS: 36415; 80053; 85025

== ENCOUNTER 2021-01-05 06:45 | Day surgery (SDC) | payer OTHER, SELFPAY ==
[2021-01-05 07:10] VITALS: BP 125/80; PULSE 90; RESP 16; TEMP 37.1; O2SAT 94; BMI 37.1
[2021-01-05 07:16] LABS: Bedside Glucose 109 mg/dL (70-110)
--- NOTE | 2021-01-05 07:23 | HP.PCM_ITS ---
HPI - General HPI Narrative NENA LIMON, is a 55 F who presents for screening colonoscopy. patient's last colonoscopy was about 11 years ago negative per patient. Patient denies any family history of colon cancer. Denies any chronic abdominal pain/nausea/vomiting/reflux. Patient has bowel moods daily denies any blood. [facility] Medical History (Updated 01/05/21 @ 08:[address] Zelda Badillo MD) Anxiety Cardiology follow-up encounter Diabetes Gastric reflux Health care maintenance High cholesterol History of echocardiogram History of stress test Hypertension Non-smoker Normal stress echocardiogram PCOS (polycystic ovarian syndrome) Sleep apnea Type 2 diabetes mellitus Wears contact lenses Home Medications atorvastatin 40 mg tablet 40 mg PO QDAY 10/12/17 [History Last Taken Unknown] aspirin 81 mg tablet,delayed release 81 mg PO DAILY 03/03/18 [History Last Taken Unknown] cholecalciferol (vitamin D3) 25 mcg (1,000 unit) capsule 2,000 unit PO QDAY cap 11/16/18 [History Last Taken Unknown] escitalopram oxalate 10 mg tablet 5 mg PO QDAY tab 11/16/18 [History Last Taken Unknown] ferrous sulfate 325 mg (65 mg iron) tablet 325 mg PO DAILY 02/22/20 [History Last Taken Unknown] lisinopril 10 mg tablet 10 mg PO DAILY #90 tablet 06/23/20 [Rx Last Taken Unknown] empagliflozin 25 mg tablet 25 mg PO DAILY #90 tab 09/10/20 [Rx Last Taken Unknown] omeprazole 20 mg capsule,delayed release 20 mg PO DAILY #90 cap 10/06/20 [Rx Last Taken Unknown] Ozempic 1 mg/dose (4 mg/3 mL) subcutaneous pen injector 1 mg SUBCUT QWEEK #9 ml NS 11/14/20 [Rx Last Taken Unknown] metformin 1,000 mg tablet 1,000 mg PO BID #180 tab 11/14/20 [Rx Last Taken Unknown] ropinirole 0.5 mg tablet 0.75 mg PO QHS #45 tab 12/23/20 [Rx Last Taken Unknown] Allergy/AdvReac Type Severity Reaction Status Date / Time No Known Allergies Allergy Verified 12/31/20 11:47 Family History Father Cancer Mother Pulmonary embolism Grandmother Diabetes Brother Kidney disease Grandfather No problems noted. Surgical History (Updated 12/31/20 @ 11:56 by Dipika Maria) H/O bilateral oophorectomy H/O: hysterectomy History of breast biopsy History of carpal tunnel surgery History of laparoscopy History of tonsillectomy Hx of colonoscopy Hx of dilation and curettage Hx of foot surgery Social History Smoking Status: Never smoker alcohol intake: never substance use type: does not use caffeine: Yes what type of physical activity do you participate in: walking seatbelt use: always do you feel safe at home: Yes additional social history: Nii- Patient works at [employer] Past Medical/Surgical History Planned Operation Planned Operative Procedure/s: COLONOSCOPY S.O.S: No Previous Hospitalizations/Surgeries HX Hospitalizations: No HX of Surgeries: R CTR & TRIGGER FINGER R FOOT T&A HYSTEROSCOPY HYSTER D&C Any Problems With Anesthesia: No You/Your Family Experience Fever (Hyperthermia) With Anes: No Cholinesterase deficiency: No Cardiovascular Hx Chest Pain within Last 2 months: No Hx of Irregular Heartbeat and/or Afib: No Hx Heart Attack: No Hx Congestive Heart Failure: No Hx Rheumatic Fever: No Hx Hypertension: Yes Hx Internal Defibrillator: No Hx Pacemaker: No Hx Cardiac Catheterization: No Hx Cardiac Surgery/Stents/Etc.: No Hx Stress Test: Yes (03/31/18, ECHO 03/07) Hx Pain in Legs when Walking/Leg Cramps: Yes Respiratory Chronic Cough: No HX of Shortness of Breath: No Hoarseness: No Hx Chronic Obstructive Pulmonary Disease (COPD): No Hx Asthma: No Hx Emphysema: No Hx Sleep Apnea: Yes (RAAD - has C-pap, NON-COMPLIANT) CPAP: Yes BIPAP: No Hx Respiratory Tract Infection/Cold (presently): No Result (for STOP score): Positive Hx Smoking: No Smoking Status: Never smoker Gastrointestinal Hx Gastroesophageal Reflux: Yes Controlled With Meds: Yes (ANTACIDS PRN) Hx Gastrointestinal Disorders: No Hx Gastrointestinal Bleed: No Hx Ulcer: No Hx Hiatal Hernia: No Difficulty Chewing/Swallowing: No Special diet followed at home: No Hx Unplanned Weight Loss of 20#: No HX Unplanned Weight Gain of 20#: No Neurological Hx Seizures: No HX Syncope/Blackout Spells/Unconsciousness: No Hx Transient Ischemic Attacks (TIA): No Hx Multiple Sclerosis: No Hx Parkinson's Disease: No Hx Head/Neck Injury: No Hx Headaches: No Hx Back Injury/Pain: No Recent Onset of Speech Difficulty: No Restless Legs: Yes (ON MED) Does patient have nerve stimulator: No Blood Disorder Hx Leukemia: No Bleeding Tendencies: No Hx Deep Vein Thrombosis: No Hx High Cholesterol: Yes (ON MED) Blood Transmitted Disease: No Hx Hepatitis: No Hx Cirrhosis: No Hx Anemia: No Hx Blood Disorders: No Genitourinary Hx Renal Disease: No Musculoskeletal Hx Arthritis: No Hx Rheumatoid Arthritis: No Hx Gout: No Recent Onset of an Orthopedic Problem: No Endocrine Hx Diabetes: Yes (1-5 yrs) Insulin: No Thyroid Disease: No Hx Steroid Therapy: No Psycho/Social Hx Substance Use: No Hx Alcohol Use: No Hx Anxiety: Yes Hx Depression: No Mental Illness: No Hx Dementia: No Miscellaneous Hx Cancer: No Recent Exposure to Contagious Disease: No Hx of C-Diff: No Any Loose Teeth: No Allergies No Known Allergies Allergy (Verified 12/31/20 11:47) Discharge Is Pt Admitted From a Senior Care, or a Penitentiary: No After D/C, Where Do you Plan to Go: Return Home Physical Exam Const alert, oriented x3 and no apparent distress HEENT normocephalic and head/scalp atraumatic Resp normal respiratory effort Cardio regular rate GI soft to palpation and non-tender; Negative for non-distended Palpation: Negative for guarding Extremity no clubbing, cyanosis or edema Neuro CN's II-XII intact bilaterally Psych mental status grossly normal Assessment & Plan Assessment/Plan (1) Screening for colon cancer: Procedure Criteria Type of Procedure Procedure Type: Elective Elective Risks - COVID COVID Risk Discussion: The surgeon/proceduralist and patient have discussed in detail the risk of exposure to and/or potential harm posed by the COVID-19 virus with having a surgery/procedure at this time versus the risk of delaying the surgery/procedure. It is not possible to know either the risk of delaying the surgery or procedure or chance of getting an infection with perfect accuracy, but a joint decision was made between the patient and the surgeon/proceduralist to proceed at this time with the scheduled surgery/procedure as indicated on the consent form. Surgery Risks - Colonoscopy Risks Include but are not Limited To: Risks include but are not limited to: Bleeding, perforation requiring further surgery, inability to complete colonoscopy requiring barium enema.
[2021-01-05] MEDS: Lactated Ringers 1,000 ML 100 ML IV (07:35)
--- NOTE | 2021-01-05 07:55 | SUR.PREOP ---
AT APPROXIMATELY 0730, GIVEN 750 CC WARM TAP ENEMA. HELD ENEMA APPROXIMATELY 10 MIN.
[2021-01-05 08:46] VITALS: BP 114/79; BP 125/80; PULSE 85; RESP 18; TEMP 36.9; O2SAT 96
--- NOTE | 2021-01-05 08:48 | OP.COLON_ITS ---
Patient Name: Lorena Tse Procedure Date: 01/05/2021 8:16 AM Date of : 1965 Age: 55 Procedure: Colonoscopy Indications: Screening for colorectal malignant neoplasm Providers: Zelda Badillo MD Medicines: Monitored Anesthesia Care Patient Profile: This is a 55 year old female. Last Colonoscopy: more than 10 years ago. Complications: No immediate complications. Procedure: Pre-Anesthesia Assessment: - Prior to the procedure, a History and Physical was performed, and patient medications and allergies were reviewed. The patient's tolerance of previous anesthesia was also reviewed. The risks and benefits of the procedure and the sedation options and risks were discussed with the patient. All questions were answered, and informed consent was obtained. Prior Anticoagulants: The patient has taken aspirin, last dose was 5 days prior to procedure. ASA Grade Assessment: Per anesthesia. After reviewing the risks and benefits, the patient was deemed in satisfactory condition to undergo the procedure. After I obtained informed consent, the scope was passed under direct vision. Throughout the procedure, the patient's blood pressure, pulse, and oxygen saturations were monitored continuously. The colonoscope was introduced through the anus and advanced to the cecum, identified by the appendiceal orifice, ileocecal valve and palpation. The colonoscopy was performed without difficulty. The patient tolerated the procedure well. The quality of the bowel preparation was good. Scope In: 8:22:01 AM Scope Withdrawal Time 0 hours 12 minutes 21 seconds Scope Out: 8:43:52 AM Total Procedure Duration Time 0 hours 21 minutes 51 seconds Findings: Hemorrhoids were found on perianal exam. The entire examined colon appeared normal on direct and retroflexion views. Impression: - Hemorrhoids found on perianal exam. - The entire examined colon is normal on direct and retroflexion views. - No specimens collected. Recommendation: - Discharge patient to home. - Resume previous diet. - Continue present medications. - Repeat colonoscopy in 10 years for screening purposes. Procedure Code(s): --- Professional --- G0121, PT, Colorectal cancer screening; colonoscopy on individual not meeting criteria for high risk Diagnosis Code(s): --- Professional --- Z12.11, Encounter for screening for malignant neoplasm of colon K64.9, Unspecified hemorrhoids CPT copyright 2017 [employer]. All rights reserved. The codes documented in this report are preliminary and upon poultry picking machine tender review may be revised to meet current compliance requirements. MD Zelda Portillo MD 01/05/2021 8:47:58 AM This report has been signed electronically. Number of Addenda: 0 Note Initiated On: 01/05/2021 8:16 AM
--- NOTE | 2021-01-05 08:49 | OP.CCLET_ITS ---
01/05/2021 Elsi Hernandez MD [id number] [place] [address] [place] [address] Re : Colonoscopy procedure for Lorena Tse Dear Dr. Hernandez This procedure was performed on Tuesday, January 05, 2021. My impressions and recommendations are as follows: Impressions : - Hemorrhoids found on perianal exam. - The entire examined colon is normal on direct and retroflexion views. - No specimens collected. Recommendations : - Discharge patient to home. - Resume previous diet. - Continue present medications. - Repeat colonoscopy in 10 years for screening purposes. My findings are described in the full procedure note, which is enclosed. If I can be of further assistance, please feel free to contact me at Doctor phone number(s): , Work: . Sincerely, MD Zelda Portillo MD 01/05/2021 8:47:58 AM This report has been signed electronically.
[2021-01-05 08:50] VITALS: BP 119/63; BP 125/80; PULSE 79; RESP 16; O2SAT 95
[2021-01-05 08:55] VITALS: BP 125/80; BP 95/60; PULSE 74; RESP 16; O2SAT 96
[2021-01-05 09:01] VITALS: BP 110/69; BP 125/80; PULSE 73; RESP 16; TEMP 37.3; O2SAT 95
[2021-01-05 09:17] VITALS: BP 125/80
== END 2021-01-05 09:22 | disposition home or self-care (01) ==
LOC: EN 06:46 → AC 06:48
PROVIDERS: PCP Internal Medicine; Referring Provider Internal Medicine; Visit Provider Surgery
PROC: 0DJD8ZZ Inspection of Lower Intestinal Tract, Via Natural or Artificial Opening Endoscopic (ICD-10-PCS; CPT 45378; principal; 2021-01-05 08:10)
DX: Z12.11 Encounter for screening for malignant neoplasm of colon (principal); K64.9 Unspecified hemorrhoids; K21.9 Gastro-esophageal reflux disease without esophagitis; I10 Essential (primary) hypertension; E11.9 Type 2 diabetes mellitus without complications; E78.2 Mixed hyperlipidemia; G47.33 Obstructive sleep apnea (adult) (pediatric); F41.9 Anxiety disorder, unspecified; E66.9 Obesity, unspecified; Z91.19 Patient's noncompliance with other medical treatment and regimen; Z79.82 Long term (current) use of aspirin; Z79.84 Long term (current) use of oral hypoglycemic drugs; Z79.899 Other long term (current) drug therapy
CPT/HCPCS: 45378; 82962; J7120; J2405

== ENCOUNTER 2021-01-08 15:08 | Outpatient (CLI) | payer OTHER, SELFPAY ==
[2021-01-08] MEDS: 0.9% Saline Lock 10 ML Syringe IV (15:25)
[2021-01-08 15:30] VITALS: BP 120/81; PULSE 87; RESP 16; TEMP 38.3; O2SAT 95; BMI 37.6
[2021-01-08] MEDS: Acetaminophen 325 MG Tablet 650 MG PO (15:44)
[2021-01-08 16:05] VITALS: BP 112/76; PULSE 91; RESP 16; TEMP 38.2; O2SAT 98
[2021-01-08 17:05] VITALS: BP 112/76; PULSE 98; RESP 18; TEMP 38.5; O2SAT 96
== END 2021-01-08 17:05 | disposition home or self-care (01) ==
LOC: MS3OUT 15:08 → MS3 15:09
PROVIDERS: PCP Internal Medicine; Referring Provider Nurse Practitioner Adult Health; Visit Provider Nurse Practitioner Adult Health
DX: U07.1 COVID-19 (principal)
CPT/HCPCS: J7050; M0243; A4216; Q0244

== ENCOUNTER 2021-03-25 14:21 | Outpatient (CLI) | payer OTHER, SELFPAY | END 2021-03-25 23:59 | disposition short-term general hospital (02) | LOC: LABSPEC 14:23 | PROVIDERS: PCP Internal Medicine; Visit Provider Nurse Practitioner Women's Health | DX: R30.0 Dysuria (principal) | CPT/HCPCS: 87086; 87088 ==

== ENCOUNTER 2021-06-18 07:42 | Outpatient (CLI) | payer OTHER, SELFPAY ==
--- NOTE | 2021-06-18 07:44 | BI_ITS ---
MAMMOGRAPHY - BILATERAL SCREENING REASON FOR EXAM: Female, 56 years old. Routine annual screening examination. PERTINENT HISTORY: Grandmother with breast cancer. TECHNIQUE: Digital bilateral breast julius (3D mammographic acquisition) in the CC and MLO projections. 2-D mediolateral oblique (MLO) and craniocaudad (CC) views of both breasts were obtained. CAD: Full Field Digital Mammography with Computer Added Detection was performed. COMPARISON: Comparison is made with prior study dated 02/18/2020 and 01/16/2019. FINDINGS: Breast Composition: The breasts are heterogeneously dense, which may obscure small masses. There are no dominant masses or suspicious calcifications. Once again, 2 adjacent tissue clip markers are seen in the upper lateral aspect of the left breast. No other significant abnormalities are identified. There has been no significant change since the prior study. BI/SCRN MAMM (CAD)W/JULIUS BILAT IMPRESSION: Stable bilateral screening mammogram. Yearly follow-up mammogram recommended. (A) ASSESSMENT CATEGORY: BIRADS Category 2: Benign. A letter regarding these results will be sent to the patient by the facility within 30 days. Approximately 10% of breast cancers are not detected by mammography. A normal mammogram should not delay biopsy of a clinically suspicious abnormality. [id number] Electronically Signed: Austen Malin MD at 8:23 EDT ,
== END 2021-06-18 23:59 | disposition home or self-care (01) ==
LOC: OPBI 07:42
PROVIDERS: PCP Internal Medicine; Visit Provider Obstetrics & Gynecology
DX: Z12.31 Encounter for screening mammogram for malignant neoplasm of breast (principal); Z80.3 Family history of malignant neoplasm of breast
CPT/HCPCS: 77063; 77067

== ENCOUNTER → 2022-02-03 | Outpatient (CLI) | payer OTHER, SELFPAY ==
[2022-02-03 09:07] LABS: Absolute Lymphocyte Count 2.41 X10^3/uL (0.83-4.51); Absolute Neutrophil Count 5.3 X10^3/uL (2.0-7.7); Basophil# 0.06 X10^3/uL; Basophil% 0.7 % (0-1); Eosinophil# 0.52 X10^3/uL; Eosinophils% 5.8 % (0-5); Hematocrit 46.6 % (37-47); Hemoglobin 15.1 g/dL (12.0-15.0); Lymphocyte # 2.41 X10^3/ul (0.83-4.51); Lymphocyte % 26.9 % (19-41); Mean Corp Hgb Conc 32.4 g/dL (32-36); Mean Corpuscular Hgb 28.9 pg (27.0-32.0); Mean Corpuscular Volume 89.3 fL (81-99); Mean Platelet Vol. 11.1 fl (6.2-12.0); Monocyte% 6.7 % (0-10); NRBC Flagged by Analyzer 0 % (0-5); Neutrophil # 5.33 X10^3/uL (2.7-7.7); Neutrophil % 59.5 % (47-70); Platelet Count 261 K/mm3 (150-450); RBC Distribution Width CV 13.3 % (11.6-14.6); RBC Distribution Width SD 43.2 fl (35.1-43.9); Red Blood Count 5.22 M/mm3 (4.2-5.4)
[2022-02-03 09:36] LABS: ALB/GLOB Ratio 1.2 RATIO (0.9-2.4); AST(SGOT) 16 U/L (15-37); Alanine Aminotransfer ALT/SGPT 33 U/L (13-56); Alkaline Phosphatase 76 U/L (45-117); Anion Gap 5 (5-15); BUN 11 mg/dL (7-18); BUN/Creat Ratio 13.2 RATIO (10-20); Calcium,Total 9.5 mg/dL (8.5-10.1); Chloride 106 mmol/L (98-107); Cholesterol 153 mg/dL (200); Creatinine, Serum 0.84 mg/dL (0.55-1.02); EST Glomerular Filtration Rate 75 mL/min (>60); Est Glom Filt Rate - Afr Amer 91 mL/min (>60); Globulin 3.2 g/dL (2.2-4.2); Glucose 102 mg/dL (74-106); High Density Lipoprotein 49 mg/dL; Potassium 4.6 mmol/L (3.5-5.1); Protein, Total 7.2 g/dL (6.4-8.2); Sodium Level 141 mmol/L (136-145); Triglycerides 122 mg/dL; Very Low Density Lipoprotein 24 mg/dL (5-40)
== END | disposition home or self-care (01) ==
LOC: PAVLAB 08:52
PROVIDERS: PCP Internal Medicine; Referring Provider Internal Medicine; Visit Provider Internal Medicine
DX: I10 Essential (primary) hypertension (principal)
CPT/HCPCS: 36415; 80053; 80061; 85025

== ENCOUNTER → 2022-03-17 | Outpatient (CLI) | payer OTHER, SELFPAY | END | disposition home or self-care (01) | LOC: LABSPEC 12:49 | PROVIDERS: PCP Internal Medicine; Referring Provider Nurse Practitioner Women's Health; Visit Provider Nurse Practitioner Women's Health | DX: N39.0 Urinary tract infection, site not specified (principal) | CPT/HCPCS: 87086; 87088 ==

== ENCOUNTER → 2022-05-18 | Outpatient (CLI) | payer OTHER, SELFPAY ==
--- NOTE | 2022-05-18 09:12 | EKG12_ITS ---
Test Reason : OBESITY/DIABETES Blood Pressure : / mmHG Vent. Rate : 068 BPM Atrial Rate : 068 BPM P-R Int : 112 ms QRS Dur : 074 ms QT Int : 386 ms P-R-T Axes : 050 055 061 degrees QTc Int : 410 ms Normal sinus rhythm Low voltage QRS Septal infarct , age undetermined , cannot be excluded Abnormal ECG Confirmed by KATHARINE GENAO, MARISOL ([id number]), purchase request editor MICHELLE MEYER ([id number]) on 05/19/2022 10:20:26 AM Referred By: LEELA Confirmed By:MARISOL ALCANTAR MD
== END | disposition home or self-care (01) ==
LOC: PSN 09:11
PROVIDERS: PCP Internal Medicine; Visit Provider Obstetrics & Gynecology
DX: E11.9 Type 2 diabetes mellitus without complications (principal); E66.9 Obesity, unspecified; I10 Essential (primary) hypertension
CPT/HCPCS: 93005

== ENCOUNTER → 2022-06-23 | Outpatient (CLI) | payer OTHER, SELFPAY ==
--- NOTE | 2022-06-23 13:43 | BI_ITS ---
MAMMOGRAPHY - BILATERAL SCREENING REASON FOR EXAM: Female, 57 years old. Routine annual screening examination. PERTINENT HISTORY: Grandmother with breast cancer. History of prior left ultrasound guided Breast Biopsy TECHNIQUE: Digital bilateral breast julius (3D mammographic acquisition) in the CC and MLO projections. 2-D mediolateral oblique (MLO) and craniocaudad (CC) views of both breasts were obtained. CAD: Full Field Digital Mammography with Computer Added Detection was performed. COMPARISON: Comparison is made with prior study dated June 18, 2021 and February 18, 2020. FINDINGS: Breast Composition: The breasts are heterogeneously dense, which may obscure small masses. There are no dominant masses or suspicious calcifications. 2, adjacent tissue clip marker is are seen in the upper lateral aspect of the left breast. These are unchanged. No other significant abnormalities are identified. There has been no significant change since the prior study. BI/SCRN MAMM (CAD)W/JULIUS BILAT IMPRESSION: Stable bilateral screening mammogram. Yearly follow-up mammogram recommended. (A) ASSESSMENT CATEGORY: BIRADS Category 2: Benign. A letter regarding these results will be sent to the patient by the facility within 30 days. Approximately 10% of breast cancers are not detected by mammography. A normal mammogram should not delay biopsy of a clinically suspicious abnormality. [id number] Electronically Signed: Austen Malin MD at 14:41 EDT ,
== END | disposition home or self-care (01) ==
LOC: OPBI 13:41
PROVIDERS: PCP Internal Medicine; Visit Provider Obstetrics & Gynecology
DX: Z12.31 Encounter for screening mammogram for malignant neoplasm of breast (principal)
CPT/HCPCS: 77063; 77067

== ENCOUNTER 2022-08-31 08:19 | Day surgery (SDC) | payer OTHER, SELFPAY ==
[2022-08-31] VITALS (7 sets, daily range): BP systolic 97–121; BP diastolic 65–80; PULSE 76–85; RESP 14–18; TEMP 36.4–37; O2SAT 96–98; BMI 33.3
[2022-08-31] MEDS: Lactated Ringers 1,000 ML 15 ML IV (09:07)
[2022-08-31 09:26] LABS: Bedside Glucose 122 mg/dL (74-106)
--- NOTE | 2022-08-31 09:51 | PCM.HP.BLA ---
History and Physical Date of Admission: 08/31/22 [facility] [id number] [place] [address] OFFICE VISIT Date of Service:? 08/04/22 MR#: [id number] Acct: [id number] Name:NENA JOHNSON Rep #: [id number] : 1965 ? ? Provider: Dr. Lamont Wyatt, DO Age/Sex:? 57/F ? ? Location: [facility] Status: Signed Intake Vital Signs ? 07/02/2307:15 07/30/2312:19 Height 5 ft 2 in 5 ft 2 in Intake Visit Reasons:?left hand Chief Complaint: left hand Accompanied by: Self Is patient in pain?: Yes Pain scale (1-10): 2 Allergies No Known Allergies Allergy (Verified 07/30/22 13:18) Medications aspirin 81 mg tablet,delayed release (Adult Aspirin Regimen) 81 mg PO DAILY 03/03/18 [History Confirmed 08/04/22] cholecalciferol (vitamin D3) 25 mcg (1,000 unit) capsule 2,000 unit PO QDAY 11/16/18 [History Confirmed 08/04/22] ferrous sulfate 325 mg (65 mg iron) tablet (FeroSul) 325 mg PO DAILY 02/22/20 [History Confirmed 08/04/22] blood sugar diagnostic (OneTouch Ultra Test strips) #100 ea 01/29/21 [Rx Confirmed 08/04/22] blood sugar diagnostic (OneTouch Ultra Test strips) #100 ea 10/12/21 [Rx Confirmed 08/04/22] blood-glucose meter (OneTouch Ultra2 Meter) #1 ea 10/12/21 [Rx Confirmed 08/04/22] Ozempic 1 mg/dose (4 mg/3 mL) subcutaneous pen injector (semaglutide) 1 mg (0.75 mL) subcut QWEEK #9 mL 12/03/21 [Rx Confirmed 08/04/22] metformin 1,000 mg tablet 1,000 mg PO BID #180 tabs 12/08/21 [Rx Confirmed 08/04/22] omeprazole 40 mg capsule,delayed release 40 mg PO DAILY #90 caps 02/05/22 [Rx Confirmed 08/04/22] empagliflozin 25 mg tablet 25 mg PO DAILY #90 tabs 06/01/22 [Rx Confirmed 08/04/22] atorvastatin 40 mg tablet (Lipitor) 40 mg PO QDAY #90 tabs 07/30/22 [Rx Confirmed 08/04/22] escitalopram oxalate 10 mg tablet (Lexapro) 10 mg PO QDAY #90 tabs 07/30/22 [Rx Confirmed 08/04/22] lisinopril 10 mg tablet 10 mg PO DAILY #90 tabs 07/30/22 [Rx Confirmed 08/04/22] ropinirole 0.5 mg tablet See Rx Instructions .Route .COMPLEX #135 tabs 07/30/22 [Rx Confirmed 08/04/22] phentermine 37.5 mg tablet (Adipex-P) 18.75 mg PO DAILY #15 tabs 07/31/22 [Rx Confirmed 08/04/22] PFSH Medical History? Acute maxillary sinusitis, unspecified Anxiety Cardiology follow-up encounter COVID-19 Encounter for screening for COVID-19 Gastric reflux GERD (gastroesophageal reflux disease) Health care maintenance High cholesterol History of echocardiogram History of stress test Hypertension Non-smoker Normal stress echocardiogram PCOS (polycystic ovarian syndrome) Sleep apnea Trigger finger, left middle finger Type 2 diabetes mellitus Wears contact lenses Surgical History? H/O bilateral oophorectomy H/O: hysterectomy History of breast biopsy History of carpal tunnel surgery History of laparoscopy History of tonsillectomy Hx of colonoscopy Hx of dilation and curettage Hx of foot surgery Family History? Father CancerMother Pulmonary embolismGrandmother DiabetesBrother Kidney diseaseGrandfather ?? No problems noted. Social History? Smoking Status:? Never smoker alcohol intake:? never substance use type:? does not use caffeine:? Yes what type of physical activity do you participate in:? walking seatbelt use:? always do you feel safe at home:? Yes additional social history:? Nii- Patient works at [employer] left hand Details: Parts of this documentation were recorded by a scribe, this documentation accurately reflects the service provided and the decisions made by me, Dr. Lamont Wyatt, DO 08/04/22 1309. NENA LIMON is a 57 year old F here today for? left middle finger trigger finger. Her last injection was 03/2022 and this was helpful for 3 months then the finger started locking agian. She wishes to proceed with surgery at this time. She states that the finger will get stuck every once in a while but there is also a tender cyst ant the digital palmar flexion crease. Ortho Exam General General: Yes no acute distress Neurologic: Yes alert and Yes oriented x3 Psychologic: Yes reasonable and appropriate Right Wrist/Hand Skin/Wound: No Swelling and No Ecchymosis Left Wrist/Hand Skin/Wound: Yes CDI, No Swelling, No Ecchymosis, Yes capillary refill normal and No erythema WRIST: hypertrophy of A1 adrian middle finger synovial like cyst over digitalpalmer flexion crease that is very tender Head: Normocephalic Atraumatic Chest: symmetrical rise, non-labored breathing, no audible wheeze Abdomen: no guarding, non-rigid Coding Level of Care Code Off vis,est,level 3 Diagnoses Trigger finger, left middle finger? M65.332 Ganglion cyst of finger of left hand? M67.442 Assessment and Plan Assessment and Plan (1) Trigger finger, left middle finger: ?Status:?Acute (2) Ganglion cyst of finger of left hand: ?Status:?Acute Plan Patient educated that she does have pain and hypertrophy of the left middle finger A1 adrian. She also has a cyst over the distal mayen crease. Treatment options would be to have another steroid injection or A1 adrian release or cyst removal or A1 adrian release with cyst removal. Reviewed the pre-operative plans with the patient. Risks and benefits of the procedure were fully explained, including but not limited to infection, neurovascular injury, continued pain, arthritis, stiffness, need for further surgery, re-injury, DVT, PE, general risks of anesthesia, and loss of limb or life. The patient understands all the risks and does wish to proceed with written consent for left middle finger A1 adrian release with excision of cyst. Follow up 2 weeks post op or sooner if pain, swelling, numbness or associated symptoms, or concerns develop.? All questions answered. Patient in agreement of plan. 08/04/22 [id number] <Electronically signed by Lamont Wyatt DO> Date Lamont Wyatt DO Cosigner Signature: Date (if applicable) ?I have examined the patient and the H&P has been reviewed. There are no clinical changes since date of exam.
[2022-08-31] MEDS: Cefazolin 2 GM in 0.9% Normal Saline 100 ML IV (10:15)
[2022-08-31] MEDS: Lidocaine 1%/Epi 1:100 (30ml) 30 ML VIAL (10:35)
--- NOTE | 2022-08-31 10:57 | PCM.OP.BLANK ---
Operative Report Date of Procedure: 08/31/22 Preoperative diagnosis; left middle digit trigger finger with small synovial cyst Postoperative diagnosis; same Procedure: Left third digit A1 ardian release Anesthesia: Local with MAC Tourniquet time; 15 minutes 250 mm Hg Complications: None Indication for procedure; This is a 57-year-old female with symptoms consistent with trigger finger. Risks benefits and alternatives were reviewed including risks of bleeding infection nerve tendon tissue damage need for further surgery and continued pain and symptoms, hypersensitivity to scar/incision and recurrence. Dacian the patient did feel a very small synovial cyst just distal to the adrian Procedure; The patient was met in the preoperative holding area the operative extremity was identified by both patient and physician and was marked the patient was met by anesthesia and brought back to the operating room and transferred to the operating table in the supine position. Aanesthesia was started. A well-padded tourniquet was placed on the operative upper extremity. The patient was prepped and draped in the usual sterile fashion. A timeout was called to ensure the proper patient procedure and extremity were being contemplated. 0.5 percent Marcaine was injected into the incisional area. Esmarch was used tourniquet was inflated. 15 blade scalpel was used to make a diagonal incision directly over the A1 adrian it was carried down distally and angled in a Bernell fashion at the digital palmar crease, for the purposes of exploration of the cyst dissection was carried down through the subcutaneous tissue Saranya retractors placed radial and ulnar protecting the digital nerves. there was a small synovial fold over the distal end of the adrian which I believe is what she was feeling there is no other cystic structures or masses in the area, there was not enough tissue to send for specimen and a Ragnell retractor was used at the apex of the incision under direct visualization a deep blade scalpel was used to release the A1 adrian. The wound was thoroughly irrigated and closed with 4-0 nylon vertical mattress edges. Dressing was applied in the form of Xeroform 4 x 4 web roll and an Shmuel wrap. Patient tolerated the procedure well was brought back to the PACU in stable condition.
--- NOTE | 2022-08-31 11:02 | EX.PCM.DISCH ---
Discharge Instructions Diet Discharge Diet: No restrictions Dressing / Incision Call your doctor if you observe: Shortness of breath and Chest pain Additional Dressing/Incision Instructions:: Ice and elevate operative extremity next 72 hours. Keep dressing on clean and dry for 48 hours then may remove and allow warm soapy water to rinse over incision but do not submerge until sutures are out. Then apply bandaid over incision and change daily. encourage finger range of motion. Not lift more than 1/2 pound. Minimize narcotic use only as needed and directed, may use OTC NSAID and Tylenol to supplement/substitute for pain control. Follow Up Care When: 14 to 17 days Test Results: Test results from this visit will be discussed in further detail at your follow-up appointment, if applicable. Discharge Plan Admission Primary Reason for Your Visit: Left middle finger A1 adrian release Attending Provider: Lamont Wyatt Primary Care Provider: Elsi Hernandez Discharge Orders/Prescriptions Prescriptions: New oxycodone 5 mg tablet 5 mg PO Q4H PRN (Reason: pain) 3 Days Qty: 7 0RF Continued cholecalciferol (vitamin D3) 1,000 unit capsule 2,000 unit PO QDAY aspirin [Adult Aspirin Regimen] 81 mg tablet,delayed release (DR/EC) 81 mg PO DAILY (DME) OneTouch Ultra Test Strip See Rx Instructions .ROUTE .MEDSUPPLY Qty: 100 2RF Rx Instructions: Check Blood glucose BID omeprazole 40 mg capsule,delayed release(DR/EC) 40 mg PO DAILY Qty: 90 3RF (DME) blood-glucose meter [OneTouch Ultra2 Meter] [facility] [place] See Rx Instructions .Route Qty: 1 0RF Rx Instructions: As directed (DME) OneTouch Ultra Test Strip See Rx Instructions .Route Qty: 100 6RF Rx Instructions: once daily lisinopril 10 mg tablet 10 mg PO DAILY Qty: 90 3RF atorvastatin [Lipitor] 40 mg tablet 40 mg PO QDAY Qty: 90 3RF escitalopram oxalate [Lexapro] 10 mg tablet 10 mg PO QDAY Qty: 90 3RF phentermine [Adipex-P] 37.5 mg tablet 18.75 mg PO DAILY Qty: 15 2RF Rx Instructions: must administer 30 minutes before or 1-2 hours after breakfast BMI 33 metformin 1,000 mg tablet 500 mg PO BID ropinirole 0.5 mg tablet 0.5 mg PO QHS Rx Instructions: TAKE 1&1/2 TABLETS BY MOUTH EVERY NIGHT AT BEDTIME Ozempic 1 mg/dose (4 mg/3 mL) pen injector 1 mg subcut TH empagliflozin 25 mg tablet 25 mg PO DAILY Qty: 90 3RF Referrals / Follow Up: Elsi Hernandez MD [Primary Care Provider] - Disposition Disposition (needs filled in before D/C Order can be placed): Home, Self Care
== END 2022-08-31 12:00 | disposition home or self-care (01) ==
LOC: SDC 08:19 → AC 08:21
PROVIDERS: PCP Internal Medicine; Referring Provider Orthopaedic Surgery; Visit Provider Orthopaedic Surgery
PROC: (CPT 26055; principal; 2022-08-31 09:50)
DX: M65.332 Trigger finger, left middle finger (principal); E11.9 Type 2 diabetes mellitus without complications; M71.342 Other bursal cyst, left hand; I10 Essential (primary) hypertension; G47.33 Obstructive sleep apnea (adult) (pediatric); K21.9 Gastro-esophageal reflux disease without esophagitis; E78.00 Pure hypercholesterolemia, unspecified; F41.9 Anxiety disorder, unspecified; Z86.16 Personal history of COVID-19; Z79.82 Long term (current) use of aspirin; Z79.899 Other long term (current) drug therapy; Z79.84 Long term (current) use of oral hypoglycemic drugs
CPT/HCPCS: 26055; 82962; J7120

== ENCOUNTER → 2022-09-29 | Outpatient (CLI) | payer OTHER, SELFPAY ==
[2022-10-04 16:08] LABS: HPV APTIMA, High Risk Negative (Negative)
== END | disposition home or self-care (01) ==
LOC: LABSPEC 14:35
PROVIDERS: PCP Internal Medicine; Referring Provider Nurse Practitioner Women's Health; Visit Provider Nurse Practitioner Women's Health
DX: Z12.4 Encounter for screening for malignant neoplasm of cervix (principal); Z90.710 Acquired absence of both cervix and uterus
CPT/HCPCS: 87624; 88175; G0145

== ENCOUNTER 2022-10-11 18:00 | Outpatient (RCR) | payer OTHER, SELFPAY ==
--- NOTE | 2023-03-23 14:06 | HP.OT.NRP ---
Patient Information Patient Information: NENA LIMON was seen in my office for initial evaluation on 09/20/22. The following Plan of Care was established for this patient: POC Established Initial Frequency: 1-2x /Week Initial Duration: 4 Weeks Plan: Continue POC: Anticipated Interventions Anticipated Interventions: A/AAROM/PROM, Strengthening, Massage, Triggerpoint Release, Modalities, Joint Protection/Energy Conservation, Fine Motor Coord/Salvador, ADL Training, Education re Diagnosis, Education re Skin Care and Precautions, Education re Self Massage Techniques and Home Program Last Seen Last Seen: This patient was last seen in our office 10/11/22. Pertinent comments regarding their Occupational therapy will appear below: pt was seen for 3 OT sessions. Last scheduled apt was a cancellation- due to time lapse in services pt is d/c. At this point I will be discontinuing this patient from occupational therapy. I would be happy to see this patient again in the future if found appropriate by the physician. Thank you! Nena Levine, OTR/L, CHT
== END 2022-10-11 19:00 | disposition home or self-care (01) ==
LOC: OT 18:00
PROVIDERS: PCP Internal Medicine; Referring Provider Orthopaedic Surgery; Visit Provider Orthopaedic Surgery
DX: M65.332 Trigger finger, left middle finger (principal); M25.649 Stiffness of unspecified hand, not elsewhere classified
CPT/HCPCS: 97035; 97140; 97165

== ENCOUNTER → 2023-02-24 | Outpatient (CLI) | payer OTHER, SELFPAY ==
[2023-02-24 08:06] LABS: Absolute Lymphocyte Count 2.09 X10^3/uL (0.83-4.51); Absolute Neutrophil Count 3.5 X10^3/uL (2.0-7.7); Basophil# 0.04 X10^3/uL; Basophil% 0.6 % (0-1); Eosinophil# 0.22 X10^3/uL; Eosinophils% 3.5 % (0-5); Hematocrit 46.3 % (37-47); Hemoglobin 14.7 g/dL (12.0-15.0); Lymphocyte # 2.09 X10^3/ul (0.83-4.51); Mean Corp Hgb Conc 31.7 g/dL (32-36); Mean Corpuscular Hgb 28.3 pg (27.0-32.0); Mean Platelet Vol. 10.6 fl (6.2-12.0); Monocyte# 0.45 X10^3/uL; Monocyte% 7.1 % (0-10); NRBC Flagged by Analyzer 0 % (0-5); Neutrophil % 55.3 % (47-70); Platelet Count 224 K/mm3 (150-450); RBC Distribution Width CV 13.8 % (11.6-14.6); RBC Distribution Width SD 44.6 fl (35.1-43.9); White Blood Count 6.3 K/mm3 (4.4-11.0)
[2023-02-24 08:40] LABS: ALB/GLOB Ratio 1.3 RATIO (0.9-2.4); AST(SGOT) 11 U/L (15-37); Alanine Aminotransfer ALT/SGPT 24 U/L (13-56); Albumin, Serum 3.7 g/dL (3.2-5.0); Alkaline Phosphatase 64 U/L (45-117); Anion Gap 5 (5-15); BUN 14 mg/dL (7-18); BUN/Creat Ratio 18.6 RATIO (10-20); Calcium,Total 8.9 mg/dL (8.5-10.1); Chloride 108 mmol/L (98-107); Cholesterol 278 mg/dL (200); Creatinine, Serum 0.75 mg/dL (0.55-1.02); EST Glomerular Filtration Rate 84 mL/min (>60); Est Glom Filt Rate - Afr Amer 102 mL/min (>60); Globulin 2.9 g/dL (2.2-4.2); Glucose 96 mg/dL (74-106); High Density Lipoprotein 57 mg/dL; Potassium 4.5 mmol/L (3.5-5.1); Protein, Total 6.6 g/dL (6.4-8.2); Sodium Level 140 mmol/L (136-145); Triglycerides 113 mg/dL; Very Low Density Lipoprotein 23 mg/dL (5-40)
== END | disposition home or self-care (01) ==
PROVIDERS: PCP Internal Medicine; Referring Provider Internal Medicine; Visit Provider Internal Medicine
DX: I10 Essential (primary) hypertension (principal)
CPT/HCPCS: 36415; 80053; 80061; 85025

== ENCOUNTER → 2023-09-28 | Outpatient (CLI) | payer OTHER, SELFPAY ==
--- NOTE | 2023-09-28 12:55 | BI_ITS ---
MAMMOGRAPHY - BILATERAL SCREENING REASON FOR EXAM: Female, 58 years old. Routine annual screening examination. PERTINENT HISTORY: Grandmother with breast cancer. Prior left ultrasound-guided breast biopsy. TECHNIQUE: Digital bilateral breast julius (3D mammographic acquisition) in the CC and MLO projections. 2-D mediolateral oblique (MLO) and craniocaudad (CC) views of both breasts were obtained. CAD: Full Field Digital Mammography with Computer Added Detection was performed. COMPARISON: Comparison is made with prior study June 23, 2022. FINDINGS: Breast Composition: The breasts are heterogeneously dense, which may obscure small masses. There are no dominant masses or suspicious calcifications. There are 2 adjacent tissue clip marker is seen in the upper lateral aspect of the left breast. There has been no change. No other significant abnormalities are identified. There has been no significant change since the prior study. BI/SCRN MAMM (CAD)W/JULIUS BILAT IMPRESSION: Stable bilateral screening mammogram. Yearly follow-up mammogram recommended. (A) ASSESSMENT CATEGORY: BIRADS Category 2: Benign. A letter regarding these results will be sent to the patient by the facility within 30 days. Approximately 10% of breast cancers are not detected by mammography. A normal mammogram should not delay biopsy of a clinically suspicious abnormality. [id number] Electronically Signed: Austen Malin MD at 14:53 EDT ,
== END | disposition home or self-care (01) ==
LOC: OPBI 12:55
PROVIDERS: PCP Internal Medicine; Referring Provider Nurse Practitioner Women's Health; Visit Provider Nurse Practitioner Women's Health
DX: Z12.31 Encounter for screening mammogram for malignant neoplasm of breast (principal); Z80.3 Family history of malignant neoplasm of breast
CPT/HCPCS: 77063; 77067

== ENCOUNTER → 2023-11-25 | Outpatient (CLI) | payer OTHER, SELFPAY ==
[2023-11-25 08:39] LABS: Absolute Lymphocyte Count 1.86 X10^3/uL (0.83-4.51); Absolute Neutrophil Count 3.8 X10^3/uL (2.0-7.7); Basophil# 0.03 X10^3/uL; Basophil% 0.5 % (0-1); Eosinophil# 0.13 X10^3/uL; Eosinophils% 2.1 % (0-5); Hematocrit 45.2 % (37-47); Hemoglobin 14.6 g/dL (12.0-15.0); Lymphocyte # 1.86 X10^3/ul (0.83-4.51); Lymphocyte % 29.8 % (19-41); Mean Corp Hgb Conc 32.3 g/dL (32-36); Mean Corpuscular Hgb 28.6 pg (27.0-32.0); Mean Corpuscular Volume 88.6 fL (81-99); Mean Platelet Vol. 11.3 fl (6.2-12.0); Monocyte# 0.42 X10^3/uL; Monocyte% 6.7 % (0-10); NRBC Flagged by Analyzer 0 % (0-5); Neutrophil # 3.78 X10^3/uL (2.7-7.7); Neutrophil % 60.6 % (47-70); Platelet Count 218 K/mm3 (150-450); RBC Distribution Width CV 13.4 % (11.6-14.6); RBC Distribution Width SD 43.8 fl (35.1-43.9); White Blood Count 6.2 K/mm3 (4.4-11.0)
[2023-11-25 10:21] LABS: Vitamin D,25 Hydroxy 21.7 ng/mL
[2023-11-25 10:40] LABS: ALB/GLOB Ratio 1.2 RATIO (0.9-2.4); AST(SGOT) 15 U/L (15-37); Alanine Aminotransfer ALT/SGPT 31 U/L (13-56); Albumin, Serum 3.6 g/dL (3.2-5.0); Alkaline Phosphatase 77 U/L (45-117); Anion Gap 6 (5-15); BUN 13 mg/dL (7-18); BUN/Creat Ratio 15.5 RATIO (10-20); Calcium,Total 9.1 mg/dL (8.5-10.1); Chloride 110 mmol/L (98-107); Cholesterol 148 mg/dL (200); Creatinine, Serum 0.84 mg/dL (0.55-1.02); EST Glomerular Filtration Rate 74 mL/min (>60); Est Glom Filt Rate - Afr Amer 90 mL/min (>60); Globulin 2.9 g/dL (2.2-4.2); Glucose 107 mg/dL (74-106); High Density Lipoprotein 55 mg/dL; Protein, Total 6.5 g/dL (6.4-8.2); Sodium Level 141 mmol/L (136-145); Thyroid Stim Hormone (TSH) 0.696 uIU/mL (0.358-3.740); Triglycerides 101 mg/dL; Very Low Density Lipoprotein 20 mg/dL (5-40)
[2023-11-25 11:51] LABS: Microalbumin,Random Urine 12.2 mg/L (NO RANGE EST.); Microalbumin:Creatinine Ratio 6.7 mg/g CRE (<30 mg/g CRE)
[2023-11-25 12:29] LABS: T4 Free Direct 0.89 ng/dL (0.76-1.46)
== END | disposition home or self-care (01) ==
LOC: LAB 08:01
PROVIDERS: Nurse Practitioner Family; PCP Internal Medicine; Referring Provider Nurse Practitioner Family; Visit Provider Nurse Practitioner Family
DX: E11.65 Type 2 diabetes mellitus with hyperglycemia (principal)
CPT/HCPCS: 36415; 80053; 80061; 82043; 82306; 82570; 84439; 84443; 85025

== ENCOUNTER → 2024-05-04 | Outpatient (CLI) | payer OTHER, SELFPAY ==
[2024-05-04 14:05] LABS: Vitamin B12 641 pg/mL (211-911); Vitamin D,25 Hydroxy 20.4 ng/mL
== END | disposition home or self-care (01) ==
LOC: BWCLAB 11:30
PROVIDERS: PCP Internal Medicine; Referring Provider Nurse Practitioner Women's Health; Visit Provider Nurse Practitioner Women's Health
DX: Z13.21 Encounter for screening for nutritional disorder (principal); R53.83 Other fatigue
CPT/HCPCS: 36415; 82306; 82607

== ENCOUNTER → 2024-08-08 | Outpatient (CLI) | payer OTHER, SELFPAY ==
[2024-08-08 15:49] LABS: Absolute Lymphocyte Count 2.03 X10^3/uL (0.83-4.51); Absolute Neutrophil Count 4.7 X10^3/uL (2.0-7.7); Basophil# 0.03 X10^3/uL; Basophil% 0.4 % (0-1); Eosinophil# 0.07 X10^3/uL; Hematocrit 44.3 % (37-47); Hemoglobin 14.4 g/dL (12.0-15.0); Lymphocyte # 2.03 X10^3/ul (0.83-4.51); Lymphocyte % 27.8 % (19-41); Mean Corp Hgb Conc 32.5 g/dL (32-36); Mean Corpuscular Volume 89.1 fL (81-99); Mean Platelet Vol. 11.8 fl (6.2-12.0); Monocyte% 6.8 % (0-10); NRBC Flagged by Analyzer 0 % (0-5); Neutrophil # 4.65 X10^3/uL (2.7-7.7); Neutrophil % 63.7 % (47-70); Platelet Count 223 K/mm3 (150-450); RBC Distribution Width CV 13.6 % (11.6-14.6); RBC Distribution Width SD 44.6 fl (35.1-43.9); Red Blood Count 4.97 M/mm3 (4.2-5.4); White Blood Count 7.3 K/mm3 (4.4-11.0)
[2024-08-09 11:09] LABS: Anion Gap 12 (5-15); BUN 13 mg/dL (4-19); BUN/Creat Ratio 16.9 RATIO (10-20); Calcium,Total 9.3 mg/dL (7.6-11.0); Carbon Dioxide 21.8 mmol/L (21.0-32.0); Chloride 106 mmol/L (98-108); Creatinine, Serum 0.75 mg/dL (0.70-1.20); EST Glomerular Filtration Rate 92 (>60); Glucose 106 mg/dL (70-99); Potassium 4.2 mmol/L (3.3-5.1); Sodium Level 140 mmol/L (133-145)
== END | disposition home or self-care (01) ==
LOC: BIMLAB 13:29
PROVIDERS: PCP Internal Medicine; Referring Provider Internal Medicine; Visit Provider Internal Medicine
DX: I10 Essential (primary) hypertension (principal); E11.65 Type 2 diabetes mellitus with hyperglycemia
CPT/HCPCS: 36415; 80048; 83036; 85025

== ENCOUNTER → 2024-10-17 | Outpatient (CLI) | payer OTHER, SELFPAY ==
--- NOTE | 2024-10-17 13:45 | BI_ITS ---
EXAM: SCRN MAMM (CAD)W/JULIUS BILAT DATE: 10/17/2024 CLINICAL HISTORY: F, Age 59 y/o , BREAST CANCER SCREENING TECHNIQUE: SCRN MAMM (CAD)W/JULIUS BILAT COMPARISON: Prior exam(s) dated 09/28/2023, 06/23/2022, 06/18/2021. FINDINGS: TISSUE DENSITY: The breasts are heterogeneously dense, which may obscure small masses. The mammogram demonstrates that the patient has dense breasts. Supplemental screening with whole breast ultrasound or MRI may be considered for further evaluation. Bilateral Breast Mammographic Findings: No significant masses, calcifications or other abnormalities are identified. BI/SCRN MAMM (CAD)W/JULIUS BILAT IMPRESSION: There is no mammographic evidence of malignancy. OVERALL FINAL ASSESSMENT BI-RADS 1: NEGATIVE. RECOMMENDATION: Routine annual follow-up in 1 Year A letter with findings and recommendations will be mailed to the patient. Reading Location: [id number]
== END | disposition home or self-care (01) ==
LOC: OPBI 13:35
PROVIDERS: PCP Internal Medicine; Referring Provider Obstetrics & Gynecology; Visit Provider Obstetrics & Gynecology
DX: Z12.31 Encounter for screening mammogram for malignant neoplasm of breast (principal)
CPT/HCPCS: 77063; 77067

== ENCOUNTER → 2024-11-21 | Outpatient (CLI) | payer OTHER, SELFPAY ==
[2024-11-21 13:17] LABS: Cholesterol 154 mg/dL (<=200); Low Density Lipoprotein Calc. 77 mg/dL; Triglycerides 64 mg/dL; Very Low Density Lipoprotein 13 mg/dL (5-40); cholesterol:hdl ratio screen 2.39
== END | disposition home or self-care (01) ==
LOC: BWCLAB 09:01
PROVIDERS: PCP Internal Medicine; Referring Provider Nurse Practitioner Family; Visit Provider Nurse Practitioner Family
DX: E11.65 Type 2 diabetes mellitus with hyperglycemia (principal)
CPT/HCPCS: 36415; 80061; 84443